=== PATIENT | female | born 1970 | race African-American/Black ===

== ENCOUNTER → 2019-01-12 20:00 | Outpatient (CLI) | payer MEDICAID, SELFPAY | PROVIDERS: Family Provider Family Medicine; PCP Family Medicine | DX: G47.30 Sleep apnea, unspecified (principal) | CPT/HCPCS: 95810 ==

== ENCOUNTER 2019-01-22 16:49 | Emergency (ER) | payer MEDICAID, SELFPAY ==
[2019-01-22 16:51] VITALS: BP 149/98; PULSE 75; RESP 20; TEMP 36.4; O2SAT 99; BMI 48.7
--- NOTE | 2019-01-22 17:07 | EKG12_ITS ---
Test Reason : CP Blood Pressure : / mmHG Vent. Rate : 073 BPM Atrial Rate : 073 BPM P-R Int : 134 ms QRS Dur : 082 ms QT Int : 392 ms P-R-T Axes : 056 036 036 degrees QTc Int : 431 ms Normal sinus rhythm Possible Left atrial enlargement Borderline ECG Confirmed by NEERAJ ALMANZAR ([id number]), international editorial producer KINDRA SOSA ([id number] on 01/28/2019 11:31:42 AM Referred By: L[facility] Confirmed By:NEERAJ ALMANZAR
--- NOTE | 2019-01-22 17:16 | ED.DCSUM_ITS ---
- ER Visit Summary Date of Service: 01/22/19 Chief Complaint: Abdominal pain, nausea, vomiting, diarrhea History of Present Illness: The patient is a 48 F who presents with abdominal pain, nausea, vomiting, diarrhea, and chest pain that all began yesterday. Patient states her pain is sharp. Patient states the pain is over the upper abdomen radiates up into her chest. Patient describes the pain as constant aching but sharp at times. Patient admits to nausea and vomiting but denies any hematemesis or coffee-ground emesis. Patient admits to watery diarrhea but denies any melena or hematochezia. Patient denies any dysuria or hematuria. Patient denies any abnormal vaginal bleeding or discharge. Physical Examination: Vital signs are stable. Patient is afebrile. Patient is in no acute distress. Oral mucosa is pink and moist. Neck is supple. Trachea is midline. There is no JVD. Heart was regular rate and rhythm. Lungs are clear and equal bilaterally. Abdomen is soft. Bowel sounds are normal. There is upper abdominal tenderness. There is no rebound or guarding noted. Cranial nerves II through XII are intact. There are no focal motor or sensory deficits noted. Test Results: CBC and comprehensive metabolic profile were essentially within normal limits. Lipase was normal. Troponin was normal. Urinalysis does not show any evidence of urinary tract infection. EKG showed normal sinus rhythm with a rate of 73. There are no acute ST or T wave changes. CT scan of the abdomen pelvis was obtained. There is no acute abdominal pathology noted. Emergency Department Course and Treatment: Patient was given IV fluids and Zofran here. Patient was given 2 doses of morphine with no improvement. Patient was given a dose of Bentyl. Patient felt better after this. Patient states her pain has completely resolved after the Bentyl. Patient is requesting to eat cookies. Patient was instructed to follow-up with her primary care physician in 5 to 7 days. Patient was given a prescription for Bentyl. Patient understood and was agreeable with the plan. All questions were answered. Disposition: Discharge home Impression: Abdominal pain This note was generated with [employer]Pix[employer] software. It may contain incorrect words, spelling, and punctuation that were not noted in review of the chart prior to signing ED Disposition - Plan for ED Patient: Disposition: Home or Assisted Living Diagnosis: Abdominal pain Instructions: ABDOMINAL PAIN, Unknown Cause, (Female) Prescriptions: Dicyclomine HCl [Bentyl] 20 mg PO TIDAC #20 cap Prescription Printed Referrals: Derek Bolaños III, MD [Primary Care Provider] - 5-7 Days
[2019-01-22] MEDS: Ondansetron 4 MG/2 ML Vial IV (17:23)
[2019-01-22] MEDS: 0.9% Normal Saline 1,000 ML 1000 ML IV (17:23)
[2019-01-22] MEDS: Morphine 4 MG/ML Syringe IV ×2 (17:27→18:33)
[2019-01-22 17:30] LABS: Absolute Lymphocyte Count 1.99 X10^3/uL (0.83-4.51); Absolute Neutrophil Count 4.7 X10^3/uL (2.0-7.7); Basophil# 0.01 X10^3/uL; Basophil% 0.1 % (0-1); Eosinophil# 0.02 X10^3/uL; Eosinophils% 0.3 % (0-5); Hematocrit 43.8 % (37-47); Hemoglobin 13.7 g/dL (12.0-15.0); Lymphocyte # 1.99 X10^3/ul (4.0); Lymphocyte % 26.6 % (19-41); Mean Corp Hgb Conc 31.3 g/dL (32-36); Mean Corpuscular Hgb 26.8 pg (27.0-32.0); Mean Corpuscular Volume 85.7 fL (81-99); Mean Platelet Vol. 9.1 fl (6.2-12.0); Monocyte# 0.77 X10^3/uL; Monocyte% 10.3 % (0-10); NRBC Flagged by Analyzer 0 % (0-5); Neutrophil # 4.65 X10^3/uL (2.7-7.7); Neutrophil % 62.3 % (47-70); Platelet Count 254 K/mm3 (150-450); RBC Distribution Width CV 13.1 % (11.6-14.6); RBC Distribution Width SD 40.6 fl (35.1-43.9); Red Blood Count 5.11 M/mm3 (4.2-5.4); White Blood Count 7.5 K/mm3 (4.4-11.0)
--- NOTE | 2019-01-22 18:24 | CT_ITS ---
STUDY: CT ABDOMEN AND PELVIS WITH CONTRAST REASON FOR EXAM: Female, 48 years old. Abdominal pain nausea vomiting and diarrhea RADIATION DOSAGE (If Supplied By Facility): CTDIvol = ( 15.42 ) mGy, DLP = ( 1259.75 ) mGycm TECHNIQUE: Transaxial images were obtained from the dome of the diaphragm to the symphysis pubis without oral contrast. IV/Oral Isovue 300 100ml was administered. Sagittal and coronal images were reconstructed. Individualized dose optimization techniques were used for this CT. COMPARISON: Prior study of 08/27/2015 FINDINGS: The visualized lung bases are unremarkable. The visualized portions of the heart are within normal limits. Normal liver. There are surgical clips in the gallbladder fossa consistent with a prior cholecystectomy. Normal spleen. Normal pancreas. Normal bilateral adrenal glands. Normal right kidney. Normal left kidney. Normal visualized stomach. Normal small intestine. Normal colon. The appendix is visualized and appears normal. Normal abdominal aorta. Normal inferior vena cava. Normal retroperitoneum. Normal urinary bladder. There is absence of the uterus consistent with a prior hysterectomy. There is a small umbilical hernia containing fat. Normal osseous structures. CT/Abdomen/Pelvis WITH Contrast IMPRESSION: 1. Status post cholecystectomy and hysterectomy. 2. Small fat-containing umbilical hernia. 3. There is no evidence of free intra-abdominal or intrapelvic air, fluid, or inflammatory process. Electronically Signed: Brian Saha MD at 21:17 EST , Service support ,
[2019-01-22 18:25] LABS: ALB/GLOB Ratio 0.8 RATIO (0.9-2.4); AST(SGOT) 24 U/L (15-37); Alanine Aminotransfer ALT/SGPT 23 U/L (13-56); Albumin, Serum 3.5 g/dL (3.2-5.0); Alkaline Phosphatase 91 U/L (45-117); Anion Gap 8 (5-15); BUN 16 mg/dL (7-18); BUN/Creat Ratio 16.3 RATIO (10-20); Calcium,Total 8.4 mg/dL (8.5-10.1); Chloride 109 mmol/L (98-107); Creatinine, Serum 0.98 mg/dL (0.55-1.02); EST Glomerular Filtration Rate 65 mL/min (>60); Est Glom Filt Rate - Afr Amer 78 mL/min (>60); Estimated Creatinine Clearance 67.15 ml/min; Globulin 4.5 g/dL (2.2-4.2); Glucose 90 mg/dL (74-106); Lipase 92 U/L (73-393); Potassium 3.2 mmol/L (3.5-5.1); Sodium Level 141 mmol/L (136-145)
[2019-01-22 19:11] VITALS: BP 130/72; PULSE 74; RESP 13; O2SAT 98
[2019-01-22 19:19] LABS: Color, Urine Yellow (Yellow); Glucose, Dipstick Normal (Normal); Ketone-Dipstick 5 mg/dl (Negative); Leukocyte Esterase-Dipstick 25 /ul (Negative); Nitrite-Dipstick Negative (Negative); Occult Blood-Urine 25 /ul (Negative); Protein-Dipstick 15 mg/dl (Negative); Urine Bilirubin Dipstick Negative (Negative); Urine Clarity Sl. Cloudy (Clear); Urine Urobilinogen 1 mg/dl (Normal)
[2019-01-22 19:28] LABS: White Blood Cells 0-5 SEEN /hpf (0-5)
[2019-01-22 19:29] LABS: Lactic Acid 1.1 mmol/L (0.4-2.0)
[2019-01-22 19:30] LABS: Bacteria 1+ /hpf (None Seen); Mucous, Urine 1+ /hpf (<or=2+); Squamous Epithelial Cells - UA 0-5 SEEN /hpf (5-10)
[2019-01-22 19:31] LABS: Red Blood Cells-Urine 0-5 SEEN /hpf (0-5)
[2019-01-22] MEDS: Dicyclomine 20 MG/2 ML Vial IM (20:07)
[2019-01-22 22:22] VITALS: BP 115/64; PULSE 61; PULSE 64; RESP 18; O2SAT 97; O2SAT 98
[2019-01-22] MEDS: Dicyclomine 10 MG Capsule PO (22:24)
== END 2019-01-22 22:28 | disposition home or self-care (01) ==
PROVIDERS: Emergency Provider Emergency Medicine; Family Provider Family Medicine; PCP Family Medicine
DX: R10.10 Upper abdominal pain, unspecified (principal); R11.2 Nausea with vomiting, unspecified; I10 Essential (primary) hypertension; J30.2 Other seasonal allergic rhinitis; F41.9 Anxiety disorder, unspecified; E66.9 Obesity, unspecified; F17.200 Nicotine dependence, unspecified, uncomplicated; Z79.899 Other long term (current) drug therapy
CPT/HCPCS: 74177; 80053; 81001; 83605; 83690; 84484; 85025; 87804; 93005; 96361; 96372; 96374; 96375; 96376; 99284; J7030; Q9967; J2405

== ENCOUNTER → 2019-03-24 21:25 | Outpatient (CLI) | payer MEDICAID, SELFPAY | PROVIDERS: Family Provider Family Medicine; PCP Family Medicine; Referring Provider Family Medicine; Visit Provider Family Medicine | DX: G47.33 Obstructive sleep apnea (adult) (pediatric) (principal) | CPT/HCPCS: 95811 ==

== ENCOUNTER 2022-03-14 06:26 | Emergency (ER) | payer BC, SELFPAY ==
[2022-03-14 06:28] VITALS: BP 139/72; PULSE 78; RESP 16; TEMP 36.6; O2SAT 98; BMI 44.7
--- NOTE | 2022-03-14 07:26 | ED.VIS.GI ---
HPI HPI - GI History of Present Illness Chief Complaint: Abd Pain Informant: patient Abdominal Pain/Flank Pain Onset: Days (4) Context: Gradual Onset Timing: Waxes and wanes Quality: Sharp Location: Epigastric Worsened by: Food Relieved by: - (Gas pills) Nausea/Vomiting/Emesis GI Symptom: Positive for Nausea; Negative for Vomiting Diarrhea/Melena/Hematochezia GI Symptom: Positive for Diarrhea; Negative for Melena or Hematochezia Associated Symptoms Associated Symptoms: Negative for Dysuria, Frequency or Hematuria Narrative Narrative: Presents with no pain that has been waxing and waning over the last 4 days. Patient describes her pain as sharp. Patient states pain is over the epigastric area. Patient states it became worse after taking her medicine today. Patient states that she took some gas pills earlier which seem to help. Patient admits to nausea but denies any vomiting. Patient admits to diarrhea but denies any melena or hematochezia. Patient denies any dysuria or hematuria. Patient denies any abnormal vaginal bleeding or discharge. Patient states she is also getting over an episode of bronchitis. Patient states she still has a cough and sore throat from that. Patient denies any fevers or chills. [facility] Medical History (Updated 03/14/22 @ 09:[address] Jonh Tiwari, DO) GERD (gastroesophageal reflux disease) HTN (hypertension) Obesities, morbid Home Medications citalopram 40 mg tablet 40 mg PO DAILY 04/21/13 [History Last Taken Unknown] clonazepam 1 mg tablet 1 mg PO DAILY 04/21/13 [History Last Taken Unknown] esomeprazole magnesium 40 mg capsule,delayed release (Nexium) 40 mg PO DAILY 04/21/13 [History Last Taken Unknown] fluticasone propionate 50 mcg/actuation nasal spray,suspension 2 spray DAILY 04/21/13 [History Last Taken Unknown] loratadine 10 mg tablet (Allergy Relief (loratadine)) 10 mg PO DAILY 04/21/13 [History Last Taken Unknown] dicyclomine 10 mg capsule 20 mg PO TIDAC #20 caps 01/22/19 [Rx Last Taken Unknown] ondansetron 4 mg disintegrating tablet 4 mg PO Q8H PRN PRN Nausea #10 tabs 01/22/19 [Rx Last Taken Unknown] sucralfate 1 gram tablet (Carafate) 1 g PO BID #20 tabs 03/14/22 [Rx Last Taken Unknown] Allergy/AdvReac Type Severity Reaction Status Date / Time Fish Containing Products Allergy Swelling Verified 03/14/22 06:31 shellfish derived Allergy Swelling Verified 03/14/22 06:31 olanzapine [From Zyprexa] AdvReac Unknown Verified 03/14/22 06:31 paroxetine HCl [From Paxil] AdvReac Unknown Verified 03/14/22 06:31 sertraline HCl [From Zoloft] AdvReac Unknown Verified 03/14/22 06:31 sumatriptan [From Imitrex] AdvReac Upset Verified 03/14/22 06:31 Stomach sumatriptan succinate AdvReac Upset Verified 03/14/22 06:31 [From Imitrex] Stomach Surgical History (Updated 03/14/22 @ 07:[address] John Tiwari DO) H/O: hysterectomy Hx of cholecystectomy Social History Smoking Status: Former smoker ROS ROS ED Constitutional Constitutional ED: Denies chills or fever(s) Eyes Eyes: Denies blurry vision or change in vision ENT ENT ED: Reports ear pain right and sore throat; Denies rhinorrhea Cardiovascular Cardiovascular: Denies chest pain or palpitations Respiratory/Chest Respiratory/Chest: Reports cough; Denies dyspnea Gastrointestinal Gastrointestinal: Reports abdominal pain, diarrhea and nausea; Denies vomiting Genitourinary Genitourinary ED: Denies dysuria or hematuria Musculoskeletal Musculoskeletal: Denies back pain or neck pain Integumentary Denies abscess or rash Neurologic Neurologic: Denies headache(s) or weakness Allergic/Immunologic Allergic/Immunologic ED: Denies mouth swelling or urticaria EXAM Physical Exam Const Vital Signs: 03/14/22 06:28 Temperature 97.8 F Temperature Source Temporal Pulse Rate 78 Respiratory Rate 16 Blood Pressure 139/72 H Blood Pressure Mean 94 Pulse Ox 98 Oxygen Delivery Method Room Air Positive well nourished, well developed and obese General Appearance ED: well developed and NAD Nutritional Appearance: obese HEENT Reports moist mucous membranes Neck supple and no JVD Resp normal respiratory effort and clear to auscultation bilaterally Cardio regular rate, regular rhythm and no murmurs GI normal to inspection, nondistended, normoactive bowel sounds Palpation: soft and tender epigastric, LUQ and RUQ; Negative for guarding or rebound tenderness present Extremity normal to inspection General Extremety ED: Negative for edema or tenderness General Extremity: Negative for edema Neuro oriented x3, CN's II-XII intact bilaterally and no sensory deficits noted Sensorium / Orientation: alert Motor Exam: strength 5/5 throughout Psych mental status grossly normal Skin no rashes or lesions noted MDM MDM MDM Narrative Medical decision making narrative: Patient was given IV fluids and Zofran. Patient declined morphine. CBC was obtained and was reviewed. This was within normal limits. Comprehensive metabolic profile was obtained and was reviewed. AST is slightly elevated at 168 and ALT is slightly elevated at 128. The remainder is within normal limits. Lipase was within normal limits. Urinalysis was obtained and was reviewed. There were 5-10 epithelial cells and 2+ bacteria. There is no evidence of urinary tract infection or hematuria. Patient is feeling better on reevaluation. Patient was advised that this could be viral gastritis or peptic ulcer disease. Patient states she has been taking Nexium at home. Patient was instructed to continue this. Patient was given a prescription for Carafate. Patient was instructed to start with a bland diet and advance as tolerated. Patient was instructed to follow-up with her primary care physician in 5 to 7 days. Patient was advised she may need to see a fiberglasser. Patient understands and is agreeable with the plan. All questions were answered. Lab Data Attestation: I reviewed the patient's lab results. Labs: Laboratory Results - last 24 hr 03/14/22 03/14/22 03/14/22 06:45 06:45 08:30 WBC 10.3 RBC 5.09 Hgb 13.5 Hct 44.0 MCV 86.4 MCH 26.5 L MCHC 30.7 L RDW Std Deviation 43.0 RDW Coeff of Stephanie 13.5 Plt Count 283 MPV 9.1 Immature Gran % (Auto) 0.200 Neut % (Auto) 53.5 Lymph % (Auto) 33.5 [place] % (Auto) 10.7 H Eos % (Auto) 1.9 Baso % (Auto) 0.2 Absolute Neuts (auto) 5.5 Absolute Lymphs (auto) 3.44 Nucleated RBC % 0 Sodium 139 Potassium 3.6 Chloride 107 Carbon Dioxide 25.0 Anion Gap 7 BUN 9 Creatinine 0.86 Estim Creat Clear Calc 76.95 Est GFR (MDRD) Af Amer 90 Est GFR (MDRD) Non-Af 75 BUN/Creatinine Ratio 10.5 Glucose 99 Calcium 8.8 Total Bilirubin 0.40 AST 168 H ALT 128 H Alkaline Phosphatase 114 Total Protein 7.2 Albumin 3.1 L Globulin 4.1 Albumin/Globulin Ratio 0.8 L Lipase 92 Urine Color Yellow Urine Clarity Sl. Cloudy Urine pH 6.0 Ur Specific [place] 1.015 Urine Protein 15 H Urine Glucose (UA) Normal Urine Ketones Negative Urine Occult Blood 10 H Urine Nitrite Negative Urine Bilirubin Negative Urine Urobilinogen Normal Ur Leukocyte Esterase Negative Urine RBC 0-5 SEEN Urine WBC 0 SEEN Ur Squamous Epith Cells 5-10 SEEN Urine Bacteria 2+ Urine Mucus 0 SEEN Discharge Plan Triage Chief Complaint: Abd Pain ED Provider: John Tiwari Dx/Rx/DC Orders Clinical Impression: Epigastric abdominal pain, Obesities, morbid, HTN (hypertension) Instructions: ED Gastritis Ulcer No Abx, ED Epigastric Pain Uncertain Cause Prescriptions: New sucralfate [Carafate] 1 gram tablet 1 g PO BID Qty: 20 0RF No Action citalopram 40 MG tablet 40 mg PO DAILY Label Comments: antidepressant clonazepam 1 MG tablet 1 mg PO DAILY Label Comments: anxiety esomeprazole magnesium [Nexium] 40 MG capsule 40 mg PO DAILY Label Comments: stomach acid fluticasone propionate 1 SPRAY spray,suspension 2 spray NASAL DAILY Label Comments: allergies loratadine [Allergy Relief (loratadine)] 10 MG tablet 10 mg PO DAILY Label Comments: allergies dicyclomine 10 MG capsule 20 mg PO TIDAC Qty: 20 0RF ondansetron 4 MG tablet 4 mg PO Q8H PRN PRN (Reason: Nausea) Qty: 10 0RF Primary Care Provider: Cisco Meier Referrals: Cisco Meier MD [Primary Care Provider] - 3-5 Days Disposition Disposition: Home, Self Care
[2022-03-14] MEDS: 0.9% Normal Saline 1,000 ML 1000 ML IV (07:47)
[2022-03-14] MEDS: Ondansetron 4 MG/2 ML Vial IV (07:47)
[2022-03-14 07:53] LABS: Absolute Lymphocyte Count 3.44 X10^3/uL (0.83-4.51); Absolute Neutrophil Count 5.5 X10^3/uL (2.0-7.7); Basophil# 0.02 X10^3/uL; Basophil% 0.2 % (0-1); Eosinophils% 1.9 % (0-5); Hemoglobin 13.5 g/dL (12.0-15.0); Lymphocyte # 3.44 X10^3/ul (0.83-4.51); Lymphocyte % 33.5 % (19-41); Mean Corp Hgb Conc 30.7 g/dL (32-36); Mean Corpuscular Hgb 26.5 pg (27.0-32.0); Mean Corpuscular Volume 86.4 fL (81-99); Mean Platelet Vol. 9.1 fl (6.2-12.0); Monocyte% 10.7 % (0-10); NRBC Flagged by Analyzer 0 % (0-5); Neutrophil % 53.5 % (47-70); Platelet Count 283 K/mm3 (150-450); RBC Distribution Width CV 13.5 % (11.6-14.6); Red Blood Count 5.09 M/mm3 (4.2-5.4); White Blood Count 10.3 K/mm3 (4.4-11.0)
[2022-03-14 08:10] LABS: ALB/GLOB Ratio 0.8 RATIO (0.9-2.4); AST(SGOT) 168 U/L (15-37); Alanine Aminotransfer ALT/SGPT 128 U/L (13-56); Albumin, Serum 3.1 g/dL (3.2-5.0); Alkaline Phosphatase 114 U/L (45-117); Anion Gap 7 (5-15); BUN 9 mg/dL (7-18); BUN/Creat Ratio 10.5 RATIO (10-20); Calcium,Total 8.8 mg/dL (8.5-10.1); Chloride 107 mmol/L (98-107); Creatinine, Serum 0.86 mg/dL (0.55-1.02); EST Glomerular Filtration Rate 75 mL/min (>60); Est Glom Filt Rate - Afr Amer 90 mL/min (>60); Estimated Creatinine Clearance 76.95 ml/min; Globulin 4.1 g/dL (2.2-4.2); Glucose 99 mg/dL (74-106); Lipase 92 U/L (73-393); Potassium 3.6 mmol/L (3.5-5.1); Protein, Total 7.2 g/dL (6.4-8.2); Sodium Level 139 mmol/L (136-145)
[2022-03-14 08:35] LABS: Mucous, Urine 0 SEEN /hpf (<or=2+); White Blood Cells 0 SEEN /hpf (0-5)
[2022-03-14 08:37] LABS: Color, Urine Yellow (Yellow); Glucose, Dipstick Normal (Normal); Ketone-Dipstick Negative (Negative); Leukocyte Esterase-Dipstick Negative /ul (Negative); Nitrite-Dipstick Negative (Negative); Occult Blood-Urine 10 /ul (Negative); Protein-Dipstick 15 mg/dl (Negative); Specific Gravity, Urine 1.015 (1.002-1.030); Urine Bilirubin Dipstick Negative (Negative); Urine Clarity Sl. Cloudy (Clear); Urine Urobilinogen Normal (Normal)
[2022-03-14 08:46] LABS: Bacteria 2+ /hpf (None Seen); Red Blood Cells-Urine 0-5 SEEN /hpf (0-5); Squamous Epithelial Cells - UA 5-10 SEEN /hpf (5-10)
[2022-03-14 09:35] VITALS: RESP 18
== END 2022-03-14 09:36 | disposition home or self-care (01) ==
PROVIDERS: Emergency Provider Emergency Medicine; PCP Family Medicine; Visit Provider Emergency Medicine
DX: R10.13 Epigastric pain (principal); E66.01 Morbid (severe) obesity due to excess calories; R11.0 Nausea; I10 Essential (primary) hypertension; R19.7 Diarrhea, unspecified; J40 Bronchitis, not specified as acute or chronic; K21.9 Gastro-esophageal reflux disease without esophagitis; Z87.891 Personal history of nicotine dependence; Z79.899 Other long term (current) drug therapy
CPT/HCPCS: 80053; 81001; 83690; 85025; 96361; 96374; 96375; 99283; J7030; A4216; J2405

== ENCOUNTER → 2022-08-05 | Outpatient (CLI) | payer BC, SELFPAY ==
[2022-08-05 10:35] LABS: Absolute Lymphocyte Count 3.99 X10^3/uL (0.83-4.51); Absolute Neutrophil Count 3.3 X10^3/uL (2.0-7.7); Basophil# 0.02 X10^3/uL; Basophil% 0.2 % (0-1); Eosinophil# 0.09 X10^3/uL; Eosinophils% 1.1 % (0-5); Hematocrit 39.2 % (37-47); Hemoglobin 12.2 g/dL (12.0-15.0); Lymphocyte # 3.99 X10^3/ul (0.83-4.51); Lymphocyte % 49.6 % (19-41); Mean Corp Hgb Conc 31.1 g/dL (32-36); Mean Corpuscular Hgb 26.5 pg (27.0-32.0); Mean Corpuscular Volume 85.2 fL (81-99); Mean Platelet Vol. 9.6 fl (6.2-12.0); Monocyte# 0.65 X10^3/uL; Monocyte% 8.1 % (0-10); NRBC Flagged by Analyzer 0 % (0-5); Neutrophil # 3.29 X10^3/uL (2.7-7.7); Neutrophil % 40.9 % (47-70); Platelet Count 279 K/mm3 (150-450); RBC Distribution Width CV 13.9 % (11.6-14.6); RBC Distribution Width SD 43.3 fl (35.1-43.9); White Blood Count 8.1 K/mm3 (4.4-11.0)
[2022-08-05 10:42] LABS: Erythrocyte Sedimentation Rate 45 mm/hr (0-30)
[2022-08-05 11:08] LABS: ALB/GLOB Ratio 0.8 RATIO (0.9-2.4); AST(SGOT) 18 U/L (15-37); Alanine Aminotransfer ALT/SGPT 21 U/L (13-56); Albumin, Serum 3.3 g/dL (3.2-5.0); Alkaline Phosphatase 85 U/L (45-117); Anion Gap 1 (5-15); BUN 12 mg/dL (7-18); BUN/Creat Ratio 14.7 RATIO (10-20); Calcium,Total 8.9 mg/dL (8.5-10.1); Chloride 110 mmol/L (98-107); Creatinine, Serum 0.82 mg/dL (0.55-1.02); EST Glomerular Filtration Rate 79 mL/min (>60); Est Glom Filt Rate - Afr Amer 95 mL/min (>60); Globulin 4.1 g/dL (2.2-4.2); Glucose 80 mg/dL (74-106); LDH 225 U/L (84-246); Potassium 3.8 mmol/L (3.5-5.1); Protein, Total 7.4 g/dL (6.4-8.2); Sodium Level 137 mmol/L (136-145)
[2022-08-06 15:08] LABS: Endomysial Antibody IgA Negative (Negative); Immunoglobulin A 231 mg/dL (87-352); t-Transglutaminase IgA <2 U/mL (0-3)
[2022-08-08 19:07] LABS: Albumin 3.4 g/dL (2.9-4.4); Alpha-1-Globulins 0.2 g/dL (0.0-0.4); Alpha-2-Globulins 0.7 g/dL (0.4-1.0); Anti-Centromere B Ab <0.2 AI (0.0-0.9); Anti-Chromatin <0.2 AI (0.0-0.9); Anti-Jo <0.2 AI (0.0-0.9); Anti-Scleroderma-70 AB <0.2 AI (0.0-0.9); Anti-dsDNA Ab <1 IU/mL (0-9); Beef <0.10 kU/L (Class 0); Chocolate <0.10 kU/L (Class 0); Clam <0.10 kU/L (Class 0); Codfish <0.10 kU/L (Class 0); Corn <0.10 kU/L (Class 0); Cytoplasmic Ab (C-ANCA) <1:20 titer (Neg:<1:20); Egg, White <0.10 kU/L (Class 0); Egg, Whole <0.10 kU/L (Class 0); Gamma Globulin 1.3 g/dL (0.4-1.8); Immunoglobulin A 230 mg/dL (87-352); Immunoglobulin E 119 IU/mL (6-495); Immunoglobulin G 1368 mg/dL (586-1602); Immunoglobulin M 57 mg/dL (26-217); Milk (Cow) 0.45 kU/L (Class I); PROEL- TOTAL PROTEIN 6.8 g/dL (6.0-8.5); Peanut <0.10 kU/L (Class 0); Perinuclear Ab (P-ANCA) <1:20 titer (Neg:<1:20); Pork <0.10 kU/L (Class 0); RNP Ab <0.2 AI (0.0-0.9); SCALLOP <0.10 kU/L (Class 0); SESAME SEED <0.10 kU/L (Class 0); SJOGREN'S Anti-SS-A test < 0.2 AI (0.0-0.9); SJOGREN'S Anti-SS-B test < 0.2 AI (0.0-0.9); Shrimp <0.10 kU/L (Class 0); Smith Ab <0.2 AI (0.0-0.9); Soybean <0.10 kU/L (Class 0); Walnut, (Food) <0.10 kU/L (Class 0); Wheat <0.10 kU/L (Class 0)
== END | disposition home or self-care (01) ==
LOC: LAB 08:48
PROVIDERS: PCP Family Medicine; Referring Provider Internal Medicine Gastroenterology; Visit Provider Internal Medicine Gastroenterology
DX: K21.9 Gastro-esophageal reflux disease without esophagitis (principal); E66.01 Morbid (severe) obesity due to excess calories
CPT/HCPCS: 36415; 80053; 82784; 82785; 83516; 83615; 84165; 85025; 85652; 86003; 86005; 86140; 86225; 86235; 86255; 86256; 86334

== ENCOUNTER 2023-04-14 00:08 | Emergency (ER) | payer BC, MEDICAID, SELFPAY ==
[2023-04-14 00:09] VITALS: BP 146/77; PULSE 87; RESP 18; TEMP 37.6; O2SAT 97; BMI 47.4
--- NOTE | 2023-04-14 00:21 | RAD_ITS ---
EXAM: XR CHEST, 2 VIEWS CLINICAL INDICATION: cough, sob TECHNIQUE: Frontal and lateral views of the chest. COMPARISON: 02/05/2016 FINDINGS: LUNGS AND PLEURAL SPACES: Mild subsegmental atelectasis and/or scarring at the left base. No consolidation or edema. No pneumothorax. No effusion. HEART: Unremarkable. Cardiac silhouette not enlarged. MEDIASTINUM: Central airways and mediastinal contour are unremarkable. BONES/JOINTS: Unremarkable. No acute fracture. SOFT TISSUES: Unremarkable. RAD/Chest PA and Lateral IMPRESSION: No radiographic evidence of acute cardiopulmonary disease. Electronically Signed: Deng Peter MD at 1:04 EST ,
--- NOTE | 2023-04-14 00:22 | EX.ED.VIS.UR ---
HPI HPI - URI History of Present Illness Chief Complaint: Shortness of Breath Informant: patient Narrative Narrative: Patient states she started having cold symptoms yesterday, today the cough feels like it is in her chest, she has had subjective fevers and chills, body aches, headache, and she states prior to coming in she experienced some dyspnea with exertion and felt like wheezing. No chest pain. No GI symptoms. No focal neurologic symptoms or neck stiffness/confusion. She states this is chest cough is reminiscent of episodes of bronchitis she has been diagnosed within the past. She states she frequently wheezes whenever she gets cold or different respiratory illnesses. She has never been diagnosed with asthma. She states 3 to 4 days ago, she went with some family to [place] at a [employer] show and so was in a crowd with a lot of people. ROS ROS ED Constitutional Constitutional ED: Reports body ache(s), chills, fatigue, fever(s), headache(s), malaise and subjective Eyes Eyes: Denies change in vision or diplopia ENT ENT ED: Reports headache(s), nasal congestion and rhinorrhea; Denies sore throat Cardiovascular Cardiovascular: Denies chest pain or palpitations Respiratory/Chest Respiratory/Chest: Reports cough, dyspnea and dyspnea on exertion; Denies sputum Gastrointestinal Gastrointestinal: Denies abdominal pain, diarrhea, nausea or vomiting Genitourinary Genitourinary ED: Denies dysuria or hematuria Musculoskeletal Musculoskeletal: Reports myalgias; Denies back pain or neck pain Integumentary Denies abscess or rash Neurologic Neurologic: Reports headache(s); Denies paresthesias or weakness Psychiatric Psychiatric: Denies suicidal ideation or suicidal thoughts [facility] Medical History Anemia Anxiety Bilateral upper abdominal pain Gastritis GERD (gastroesophageal reflux disease) HTN (hypertension) Hyperplastic rectal polyp Migraine Obesities, morbid Sleep disorder Home Medications citalopram 40 mg tablet 40 mg PO DAILY 04/21/13 [History Last Taken Unknown] clonazepam 1 mg tablet 1 mg PO DAILY 04/21/13 [History Last Taken Unknown] fluticasone propionate 50 mcg/actuation nasal spray,suspension 2 spray DAILY 04/21/13 [History Last Taken Unknown] loratadine 10 mg tablet (Allergy Relief (loratadine)) 10 mg PO DAILY 04/21/13 [History Last Taken Unknown] dicyclomine 10 mg capsule 20 mg (2 x 10 mg) PO TIDAC #20 caps 01/22/19 [Rx Last Taken Unknown] ondansetron 4 mg disintegrating tablet 4 mg PO Q8H PRN PRN Nausea #10 tabs 01/22/19 [Rx Last Taken Unknown] sucralfate 1 gram tablet (Carafate) 1 g PO BID #20 tabs 03/14/22 [Rx Last Taken Unknown] albuterol sulfate 90 mcg/actuation aerosol inhaler 2 puff inhalation Q6H PRN 07/03/22 [History Last Taken Unknown] aluminum chloride 20 % topical solution (Drysol) 1 applic topical QWEEK PRN 07/03/22 [History Last Taken Unknown] bisoprolol 5 mg-hydrochlorothiazide 6.25 mg tablet (Ziac) 1 tab PO DAILY 07/03/22 [History Last Taken Unknown] docusate sodium 100 mg capsule (Colace) 100 mg PO DAILY 07/03/22 [History Last Taken Unknown] estradiol 10 mg implant pellet mg subcut 07/03/22 [History Last Taken Unknown] pantoprazole 40 mg tablet,delayed release 40 mg PO DAILY 07/03/22 [History Last Taken Unknown] oseltamivir 75 mg capsule (Tamiflu) 75 mg PO BID 5 days #10 caps 04/14/23 [Rx Last Taken Unknown] Allergy/AdvReac Type Severity Reaction Status Date / Time Fish Containing Products Allergy Swelling Verified 04/14/23 00:09 shellfish derived Allergy Swelling Verified 04/14/23 00:09 olanzapine [From Zyprexa] AdvReac Unknown Verified 04/14/23 00:09 paroxetine HCl [From Paxil] AdvReac Unknown Verified 04/14/23 00:09 sertraline HCl [From Zoloft] AdvReac Unknown Verified 04/14/23 00:09 sumatriptan [From Imitrex] AdvReac Upset Verified 04/14/23 00:09 Stomach sumatriptan succinate AdvReac Upset Verified 04/14/23 00:09 [From Imitrex] Stomach Family History Mother Cancer Father Hypertension Prostate cancer DVT (deep venous thrombosis) Grandmother AD (Alzheimer's disease) Sister Fibroids Diabetes Surgical History H/O dilation and curettage H/O: hysterectomy Hx of cholecystectomy Social History Smoking Status: Former smoker alcohol intake: current EXAM Physical Exam Const Vital Signs: 04/14/23 00:09 04/14/23 00:15 04/14/23 00:16 Temperature 99.7 F H Temperature Source Oral Pulse Rate 87 Respiratory Rate 18 Respiratory Effort Normal Short of Breath Respiratory Depth Normal Respiratory Pattern Normal Normal Blood Pressure 146/77 H Blood Pressure Mean 100 Pulse Ox 97 Oxygen Delivery Method Room Air Room Air 04/14/23 00:34 Temperature Temperature Source Pulse Rate 77 Respiratory Rate Respiratory Effort Respiratory Depth Respiratory Pattern Normal Blood Pressure Blood Pressure Mean Pulse Ox Oxygen Delivery Method Positive well nourished, well developed and obese Constitutional Narrative: no distress General Appearance ED: well developed and NAD Nutritional Appearance: obese HEENT Reports moist mucous membranes normocephalic and atraumatic Throat: posterior oropharynx normal Eyes PERRL and EOMs intact bilaterally Neck full ROM, no lymphadenopathy, supple and no meningeal signs Resp normal respiratory effort and clear to auscultation bilaterally Resp Narrative: occasional bronchitic cough Effort and Inspection: able to speak in complete sentences Cardio regular rate, regular rhythm and no murmurs Rate: Negative for tachycardic GI non-tender and non-distended Auscultation: normoactive bowel sounds Palpation: soft Back/Spine no CVA tenderness General Back: other FROM Extremity normal to inspection and no calf tenderness General Extremety ED: Negative for edema, pulses abnormal or tenderness General Extremity: Negative for edema or pulses abnormal Neuro oriented x3, CN's II-XII intact bilaterally and no sensory deficits noted Sensorium / Orientation: awake and alert Motor Exam: strength 5/5 throughout Psych Mood & Affect: anxious Skin no rashes or lesions noted and no wounds MDM MDM MDM Narrative Medical decision making narrative: Patient well-appearing with normal vital signs except for low-grade temperature at 99.7. Her symptoms are consistent with a viral flu-like syndrome, and during this past 2 or 3-month season, there have been a high prevalence of multiple viral respiratory illnesses in the region including COVID, influenza, RSV, and others that we cannot test for. I offered the patient a chest x-ray which she is asking for and I am happy to do in order to rule out pneumonia which I have a low suspicion of clinically, and we also did a COVID/influenza/RSV swab, this came back positive for influenza A which explains her symptoms. Chest x-ray 2 views my interpretation normal, radiology in agreement. Patient was amenable to an injection of Toradol, I advised her to drink plenty of fluids and rest, ibuprofen, Tylenol as needed, and we discussed reasons to return. We did give her an albuterol aerosol, she thought that helped her wheezing some. She was not wheezing objectively on my exam. She states her [id number] recently of influenza pneumonia and wants Tamiflu, she was given a prescription. Radiography Diagnostic Testing: Clinical Impression(s) from Imaging Studies Chest X-Ray 04/14/23 00:21 IMPRESSION: No radiographic evidence of acute cardiopulmonary disease. Electronically Signed: Deng Peter MD at 1:04 EST , Discharge Plan Triage Chief Complaint: Shortness of Breath Other Complaint: Cold Sx ED Provider: Yazan Holt Dx/Rx/DC Orders Clinical Impression: Influenza A Instructions: The Flu (Influenza) Prescriptions: New oseltamivir [Tamiflu] 75 mg capsule 75 mg PO BID 5 Days Qty: 10 0RF No Action albuterol sulfate 90 mcg/actuation HFA aerosol inhaler 2 puff inhalation Q6H PRN Drysol 20 % solution 1 applic topical QWEEK PRN bisoprolol-hydrochlorothiazide [Ziac] 5-6.25 mg tablet 1 tab PO DAILY docusate sodium [Colace] 100 mg capsule 100 mg PO DAILY estradiol 10 mg pellet subcut pantoprazole 40 mg tablet,delayed release (DR/EC) 40 mg PO DAILY citalopram 40 MG tablet 40 mg PO DAILY Patient Comments: antidepressant clonazepam 1 MG tablet 1 mg PO DAILY Patient Comments: anxiety fluticasone propionate 1 SPRAY spray,suspension 2 spray NASAL DAILY Patient Comments: allergies loratadine [Allergy Relief (loratadine)] 10 MG tablet 10 mg PO DAILY Patient Comments: allergies dicyclomine 10 MG capsule 20 mg PO TIDAC Qty: 20 0RF ondansetron 4 MG tablet 4 mg PO Q8H PRN PRN (Reason: Nausea) Qty: 10 0RF sucralfate [Carafate] 1 gram tablet 1 g PO BID Qty: 20 0RF Primary Care Provider: Cisco Meier Referrals: Cisco Meier MD [Primary Care Provider] - 1 Week if not improving Disposition Disposition: Home, Self Care
[2023-04-14] MEDS: Albuterol 2.5 MG/3 ML VIAL.NEB. INHALATION (00:30)
--- OUTSIDE RECORDS SUMMARY | 2023-04-14 00:32 | XMS RPT_ITS | CCD ---
Author Name Unknown Address [address] [place] [address] Organization [facility] Care Team Providers Care Verifying Specialist Name Role Phone Hardeep PADILLA, Gerber Colbert Primary Care Provider GERBER MEIER Primary Care Unavailable SHARMAINE RILEY Attending Unavailable GERBER MEIER Referring Unavailable GERBER MEIER Primary Care Unavailable GERBER MEIER Referring Unavailable GERBER MEIER Primary Care Unavailable GERBER MEIER Primary Care Unavailable GERBER MEIER Attending Unavailable GERBER MEIER Primary Care Unavailable HARDEEPGERBER Referring Unavailable HARDEEP, GERBER Colbert Referring Unavailable HARDEEP, GERBER Colbert Primary Care Unavailable GERBER MEIER Primary Care Unavailable GERBER MEIER Attending Unavailable ED THOMASON Referring Unavailable HARDEEP, GERBER Colbert Primary Care Unavailable HARDEEP, GERBER Colbert Primary Care Unavailable KEATON HALL Attending Unavailable EDDIE TRUJILLO Referring Unavailable HARDEEP, GERBER Colbert Primary Care Unavailable EDDIE TRUJILLO Referring Unavailable GERBER MEIER Primary Care Unavailable GERBER MEIER Referring Unavailable KEATON HALL Attending Unavailable GERBER MEIER Primary Care Unavailable Gerber Meier MD Primary Care Provider Allergies Allergy Classification Reported Allergen(s) Allergy Type Date of Onset Reaction(s) Facility (20 sources) OLANZapine; Translations: [OLANZAPINE] Drug Allergy 10-28-2004 Other: See Comments [facility] (20 sources) PARoxetine; Translations: [PAROXETINE HCL] Drug Allergy 10-28-2004 Other: See Comments [facility] (20 sources) Sertraline; Translations: [SERTRALINE HCL] Drug Allergy 07-07-2005 Unknown [facility] (20 sources) Shellfish; Translations: [SHELLFISH DERIVED] Drug Allergy 09-13-2015 Swelling [facility] (20 sources) SUMAtriptan; Translations: [SUMATRIPTAN SUCCINATE] Drug Allergy 05-12-2013 Other: See Comments [facility] Medications Current Medications Medication Drug Class(es) Dates Sig (Normalized) Sig (Original) bisoprolol fumarate 5 mg / hydroCHLOROthiazide 6.25 mg oral tablet (20 sources) Thiazide Diuretic, beta-Adrenergic Alida Start: 03-07-2021 End: 05-23-2023 take 1 tablet by mouth once daily bisoprolol-hydro CHLOROthiazide (ZIAC) 5-6.25 mg per tablet Indications: Essential hypertension, benign Take 1 tablet by mouth once daily. 90 tablet 1 11/24/2022 05/23/2023 Active Completed/Discontinued Medications Medication Drug Class(es) Dates Sig (Normalized) Sig (Original) [id number] 200 actuat albuterol 0.09 mg/actuat metered dose inhaler (20 sources) beta2-Adrenergic Agonist Start: 02-25-2023 take 2 puff(s) by inhalation every four hours as needed albuterol HFA (VENTOLIN HFA) 90 mcg/actuation inhaler Inhale 2 Puffs as instructed every 4 hours as needed. 18 g 0 02/25/2023 Active Problems Active Problems Problem Classification Problem Date Documented Da te Episodic/Chronic Abdominal pain (18 sources) Epigastric pain; Translations: [Epigastric pain] Onset: 3 Episodic Acute bronchitis (1 source) Viral bronchitis; Translations: [Acute bronchitis due to other specified organisms] Episodic Anxiety disorders (20 sources) Severe anxiety (panic); Translations: [Panic disorder [episodic paroxysmal anxiety]] Onset: 6 03-07-2021 Chronic Chronic obstructive pulmonary disease and bronchiectasis (1 source) Bronchitis, not specified as acute or chronic; Translations: [Bronchitis] Onset: 3 Episodic Esophageal disorders (20 sources) Gastroesophageal reflux disease; Translations: [Gastro-esophageal reflux disease without esophagitis] Onset: 1 07-19-2010 Chronic Essential hypertension (20 sources) Benign essential hypertension; Translations: [Essential (primary) hypertension] Onset: 5 03-22-2014 Chronic Gastritis and duodenitis (9 sources) Gastritis; Translations: [Gastritis, unspecified, without bleeding] Onset: 3 Episodic Headache; including migraine (20 sources) Refractory migraine; Translations: [Migraine, unspecified, intractable, without status migrainosus] Onset: 7 07-01-2016 Chronic Mood disorders (20 sources) Recurrent major depression; Translations: [Major depressive disorder, recurrent, unspecified] Onset: 6 04-23-2015 Chronic Osteoarthritis (20 sources) Bilateral arthritis of knees; Translations: [Bilateral primary osteoarthritis of knee] Onset: 5 01-01-2015 Chronic Other gastrointestinal disorders (20 sources) Irritable bowel syndrome; Translations: [Irritable bowel syndrome without diarrhea] Onset: 7 05-19-2006 Chronic Other liver diseases (4 sources) Elevated liver enzymes level; Translations: [Abnormal levels of other serum enzymes] Episodic Other nervous system disorders (20 sources) Meralgia paresthetica; Translations: [Meralgia paresthetica, unspecified lower limb] Onset: 3 03-30-2012 Chronic Other nutritional; endocrine; and metabolic disorders (20 sources) Metabolic syndrome X; Translations: [Metabolic syndrome] Onset: 7 05-19-2006 Chronic Other nutritional; endocrine; and metabolic disorders (20 sources) Morbid obesity; Translations: [Morbid (severe) obesity due to excess calories] Onset: 6 04-23-2015 Chronic Other nutritional; endocrine; and metabolic disorders (1 source) Dysmetabolic syndrome X; Translations: [Dysmetabolic syndrome X] Onset: 7 Chronic Other nutritional; endocrine; and metabolic disorders (1 source) Morbid (severe) obesity due to excess calories; Translations: [Morbid obesity due to excess calories (HCC)] Onset: 6 Chronic Other nutritional; endocrine; and metabolic disorders (1 source) Abnormal weight gain; Translations: [Weight gain] Onset: 3 Episodic Other upper respiratory disease (20 sources) Allergic rhinitis; Translations: [Allergic rhinitis, unspecified] Onset: 6 01-17-2021 Chronic Other upper respiratory disease (1 source) Bleeding from nose; Translations: [Epistaxis] 11-15-2022 Episodic Other upper respiratory infections (2 sources) Viral upper respiratory tract infection; Translations: [Acute upper respiratory infection, unspecified] Episodic Residual codes; unclassified (20 sources) Hypersomnia; Translations: [Hypersomnia, unspecified] Onset: 7 09-10-2017 Chronic Residual codes; unclassified (20 sources) Obstructive sleep apnea syndrome; Translations: [Obstructive sleep apnea (adult) (pediatric)] Onset: 0 04-18-2019 Chronic Residual codes; unclassified (1 source) Obstructive sleep apnea (adult) (pediatric); Translations: [JES (obstructive sleep apnea)] Onset: 0 Chronic Spondylosis; intervertebral disc disorders; other back problems (1 source) Low back pain; Translations: [Lumbar pain] Episodic Past or Other Problems Problem Classification Problem Date Documented Da te Episodic/Chronic Abdominal hernia (20 sources) Umbilical hernia; Translations: [Umbilical hernia without obstruction or gangrene] Onset: 01-17-2021 01-17-2021 Episodic Anal and rectal conditions (2 sources) Hyperplastic polyp of large intestine; Translations: [Rectal polyp] Onset: 05-23-2022 Episodic Other connective tissue disease (20 sources) Muscle pain; Translations: [Myalgia and myositis, unspecified] Onset: 10-28-2004 10-28-2004 Episodic Other connective tissue disease (20 sources) Plantar fasciitis of left foot; Translations: [Plantar fascial fibromatosis] Onset: 04-23-2015 04-23-2015 Episodic Other gastrointestinal disorders (11 sources) Burping; Translations: [Eructation] Onset: 05-13-2022 Episodic Other infections; including parasitic (11 sources) History of Helicobacter pylori infection; Translations: [Personal history of other infectious and parasitic diseases] Onset: 05-13-2022 Episodic Other infections; including parasitic (1 source) Personal history of other infectious and parasitic diseases; Translations: [History of Helicobacter pylori infection] Onset: 05-13-2022 Episodic Other liver diseases (1 source) Abnormal levels of other serum enzymes; Translations: [Elevated liver enzymes] Onset: 03-18-2022 Episodic Other screening for suspected conditions (not mental disorders or infectious disease) (14 sources) Patient encounter status; Translations: [Encounter for screening mammogram for malignant neoplasm of breast] Onset: 05-13-2022 Episodic Other upper respiratory disease (1 source) Epistaxis; Translations: [Epistaxis] Onset: 11-15-2022 Episodic Residual codes; unclassified (20 sources) Family history of malignant neoplasm of breast in first degree relative; Translations: [Family history of malignant neoplasm of breast] Onset: 12-23-2011 12-23-2011 Episodic Residual codes; unclassified (20 sources) Sleep disorder; Translations: [Sleep disorder, unspecified] Onset: 04-23-2015 04-23-2015 Episodic Results Test Name Value Interpretation Reference Range Facil ity Vital Signs Date Time Vital Sign Value Performing Clinician Faci lity 11-15-2022 10:33-0400 Body temperature 97.3 [degF] Ed Thomason MD Work Phone: [facility] 11-15-2022 10:33-0400 Body weight 136.08 kg Ed Thomason MD Work Phone: [facility] 11-15-2022 10:33-0400 Diastolic blood pressure 100 mm[Hg] Ed Thomason MD Work Phone: [facility] 11-15-2022 10:33-0400 Heart rate 60 /min Ed Thomason MD Work Phone: [facility] 11-15-2022 10:33-0400 Respiratory rate 23 /min Ed Thomason MD Work Phone: [facility] 11-15-2022 10:33-0400 SaO2% (BldA) [Mass fraction] 97 % Ed Thomason MD Work Phone: [facility] 11-15-2022 10:33-0400 Systolic blood pressure 130 mm[Hg] Ed Thomason MD Work Phone: [facility] 05-14-2022 09:26-0400 Body height 167.6 cm [facility] 04-01-2022 13:14-0500 Body height 167.6 cm Keaton Hall PA-C Work Phone: [facility] 04-01-2022 13:14-0500 Body temperature 97.2 [degF] Keaton Rafael PA-C Work Phone: [facility] 04-01-2022 13:14-0500 Body weight 135.17 kg Keaton Wardsboro PA-C Work Phone: [facility] 04-01-2022 13:14-0500 Diastolic blood pressure 78 mm[Hg] Keaton Wardsboro PA-C Work Phone: [facility] 04-01-2022 13:14-0500 Heart rate 80 /min Keaton Wardsboro PA-C Work Phone: [facility] 04-01-2022 13:14-0500 SaO2% (BldA) [Mass fraction] 97 % Keaton Wardsboro PA-C Work Phone: [facility] 04-01-2022 13:14-0500 Systolic blood pressure 122 mm[Hg] Keaton Wardsboro PA-C Work Phone: [facility] 03-25-2022 13:49-0500 Diastolic blood pressure 88 mm[Hg] Sharmaine Haagen RECLAMATION WORKER.MOTOR OPERATOR Work Phone: [facility] 03-25-2022 13:49-0500 Heart rate 85 /min Sharmaine Haagen RECLAMATION WORKER.MOTOR OPERATOR Work Phone: [facility] 03-25-2022 13:49-0500 Respiratory rate 18 /min Sharmaine Haagen RECLAMATION WORKER.MOTOR OPERATOR Work Phone: [facility] 03-25-2022 13:49-0500 SaO2% (BldA) [Mass fraction] 96 % Sharmaine Haagen RECLAMATION WORKER.MOTOR OPERATOR Work Phone: [facility] 03-25-2022 13:49-0500 Systolic blood pressure 134 mm[Hg] Sharmaine Haagen RECLAMATION WORKER.MOTOR OPERATOR Work Phone: [facility] 03-14-2022 16:17-0500 Body height 167.6 cm Gerber Meier MD Work Phone: [facility] 03-14-2022 16:17-0500 Body temperature 98.1 [degF] Gerber Meier MD Work Phone: [facility] 03-14-2022 16:17-0500 Body weight 136.08 kg Gerber Meier MD Work Phone: [facility] 03-14-2022 16:17-0500 Diastolic blood pressure 90 mm[Hg] Gerber Meier MD Work Phone: [facility] 03-14-2022 16:17-0500 Heart rate 79 /min Gerber Meier MD Work Phone: [facility] 03-14-2022 16:17-0500 SaO2% (BldA) [Mass fraction] 98 % Gerber Meier MD Work Phone: [facility] 03-14-2022 16:17-0500 Systolic blood pressure 136 mm[Hg] Gerber Meier MD Work Phone: [facility] 02-25-2022 19:48-0500 Body temperature 98.29 [degF] Ayesha Praisler-Wood RECLAMATION WORKER.MOTOR OPERATOR Work Phone: [facility] 02-25-2022 19:48-0500 Body weight 140.62 kg Ayesha Praisler-Wood RECLAMATION WORKER.MOTOR OPERATOR Work Phone: [facility] 02-25-2022 19:48-0500 Diastolic blood pressure 80 mm[Hg] Ayesha Praisler-Wood RECLAMATION WORKER.MOTOR OPERATOR Work Phone: [facility] 02-25-2022 19:48-0500 Heart rate 118 /min Ayesha Praisler-Wood RECLAMATION WORKER.MOTOR OPERATOR Work Phone: [facility] 02-25-2022 19:48-0500 Respiratory rate 20 /min Ayesha Praisler-Wood RECLAMATION WORKER.MOTOR OPERATOR Work Phone: [facility] 02-25-2022 19:48-0500 SaO2% (BldA) [Mass fraction] 98 % Ayesha Praisler-Wood RECLAMATION WORKER.MOTOR OPERATOR Work Phone: [facility] 02-25-2022 19:48-0500 Systolic blood pressure 132 mm[Hg] Ayesha Praisler-Wood RECLAMATION WORKER.MOTOR OPERATOR Work Phone: [facility] Encounters Encounter Date Encounter Type Care Provider Facility Start: 04-13-2023 Telephone encounter Gerber Meier MD Work Phone: [facility] Procedures Date Procedure Procedure Detail Performing Clinician Start: 02-25-2023 Lipid 1996 panel - Serum or Plasma Gerber Meier MD Work Phone: Start: 05-16-2022 Colonoscopy Keaton Hall PA-C Work Phone: Start: 05-13-2022 History of cholecystectomy S/P cholecystectomy [facility] Start: 03-18-2022 Us abdominal real time w/image limited Gerber Meier MD Work Phone: Start: 02-25-2022 COVID WITH FLUA+B, ROUTINE Ayesha Brown APRN.MOTOR OPERATOR Work Phone: Start: 12-26-2021 End: 12-26-2021 Mammography Bulk Order Provider Start: 12-15-2018 Mammography Gerber Meier MD Work Phone: Start: 01-11-2014 Lipid 1996 panel - Serum or Plasma Ed Thomason MD Work Phone: History of cholecystectomy S/P cholecyste ctomy Keaton Hall PA-C Work Phone: Plan of Treatment Date Care Activity Detail Author Start: 05-16-2032 Colonoscopy COLONOSCOPY [facility] Start: 05-16-2032 COLORECTAL CANCER SCREENING COLORECTAL CANCER SCREENING [facility] Start: 05-16-2032 Screening for malignant neoplasm of colon [facility] Start: 02-26-2028 Lipid panel Lipid Screening [facility] Start: 02-25-2026 Diabetes Screening Diabetes Screening [facility] Start: 03-15-2025 DIABETES SCREEN DIABETES SCREEN [facility] Start: 03-15-2025 Diabetes Screening Diabetes Screening [facility] Start: 02-26-2024 Annual PCP Team Chronic Disease Visit Annual PCP Team Chronic Disease Visit [facility] Start: 04-01-2023 BP CONTROLLED (<130/80) BP CONTROLLED (<130/80) [facility] Start: 03-25-2023 ANNUAL PCP TEAM CHRONIC DISEASE VISIT ANNUAL PCP TEAM CHRONIC DISEASE VISIT [facility] Start: 03-14-2023 ANNUAL PCP TEAM CHRONIC DISEASE VISIT ANNUAL PCP TEAM CHRONIC DISEASE VISIT [facility] Start: 12-26-2022 Mammography [facility] Start: 12-26-2022 Screening for malignant neoplasm of breast Mammogram Screening [facility] Start: 11-15-2022 End: 01-15-2023 CBC W Auto Differential panel - Blood [facility] Work Phone: Immunizations Immunization Date Immunization Notes Care Provider Fa kimberly 04-21-2019 influenza virus vaccine, unspecified formulation Ed Thomason MD Work Phone: [facility] 01-15-2009 influenza virus vaccine, unspecified formulation Gerber Meier MD Work Phone: [facility] 01-13-2008 influenza virus vaccine, unspecified formulation Gerber Meier MD Work Phone: [facility] Work Phone: 01-10-2005 influenza virus vaccine, unspecified formulation Gerber Meier MD Work Phone: [facility] Work Phone: Payers Date Payer Category Payer Medicaid [id number] 2022 Private Health Insurance [employer]NA HU[employer] MEDICAID [facility] [id number] 2022-Present [address] [address] [place] [address] Medicaid [id number] 2020 Unknown [employer] CARD PPO OOS [id number] 2020-Present [phone] [address] [place] [address] PPO [id number] 2020 Unknown [employer] BL[employer] CARD PPO OOS [id number] 2020-Present [phone] [address] [place] [id number] PPO [id number] 2020 Unknown [id number] Social History Date Type Detail Facility Start: 05-25-2015 End: 03-14-2022 Tobacco smoking status NHIS Occasional tobacco smoker [facility] Work Phone: History of tobacco use Cigarette Smoker [facility] Work Phone: Start: 05-25-2015 End: 04-01-2022 Tobacco use and exposure Smokeless tobacco non-user [facility] Work Phone: Start: 05-08-2021 End: 04-08-2023 Alcohol intake Current drinker of alcohol (finding) [facility] Start: 06-10-2012 History SDOH Alcohol Comment occasional, NOT WHILE [facility] Start: 10-28-2007 End: 04-01-2022 Tobacco Comment social [facility] Start: 1970 Sex Assigned At Not on file C [facility] Start: 12-16-2021 End: 12-26-2021 Exposure to SARS-CoV-2 (event) Not sure [facility] Start: 04-01-2022 Tobacco smoking stat us AZIS Ex-smoker [facility] History of tobacco use Current smoker [facility] Start: 11-15-2022 End: 02-09-2023 History of Social function [facility] Start: 11-15-2022 End: 02-09-2023 Tobacco use panel [facility] National Score (1-100), lower number is lower risk 70 [facility] Start: 05-13-2022 Gender identity Identifies as female gender (finding) [facility] Clinical Notes 09-03-2015 to 04-13-2023 Telephone Encounter - Malissa Scanlon Ma - 04/13/2023 8:59 AM ESTTelephone Encounter - Haydee Villa - 04/13/2023 8:35 AM ESTTelephone Encounter - Raj Pina RN - 11/24/2022 2:44 PM EDT Note Date & Type Note Facility 04-13-2023 Miscellaneous Notes Patient has been identified by name and date of : Yes, Provider Dr. Meier Date April 13, 2023 Time 8:59 AM Patient phones for refill(s): Requested Prescriptions No prescriptions requested or ordered in this encounter Date of last office visit in primary care: 02/25/2023 Date of next office visit in primary care: Visit date not found (appt scheduled in July was cancelled due to Provider being out). Last Rx: 10/07/22 #60 w/5. Please advise. Thank you. Malissa Scanlon Ma. Mariela Colbert is calling Gerber Meier MD today with concern regarding Medication Problem Patient is calling in today stating that she lost her medication; she has torn her house apart and can not find. [facility]; please contact patient to let her know. pantoprazole DR (PROTONIX) 40 mg tablet 60 tablet 5 10/07/2022 04/05/2023 Sig: Take 1 tablet by mouth twice daily. Take on empty stomach, 1/2 hr before meal. Sent to pharmacy as: pantoprazole DR (PROTONIX) 40 mg tablet Class: Normal Patient has been identified by name and birthdate. Duration of symptoms: N/A Person calling: self Call patient at: at home [phone] (home) [phone] (cell) Was an appointment scheduled: No Closing statement: Results or non-symptom based questions: Thank you for calling [facility], your call will be returned within the next business day. Haydee Love documented in this encounter [facility] 02-25-2023 Note HNO ID: [id number] Author: Jordyn Kaur RT(R) Service: Radiology Author Type: Technologist Type: Progress Notes Filed: 02/25/2023 4:19 PM Note Text: Radiology Service Progress Note PATIENT NAME: Mariela Orozco DATE OF SERVICE: February 25, 2023 TIME: 4:06 PM PATIENT IDENTITY VERIFICATION COMPLETED USING TWO (2) IDENTIFIERS: Name and Date of confirmed by patient verbally. FALL SCREENING: Has the patient had 2 falls in the last year or 1 fall with injury or currently using an Ambulatory Assistive Device (Walker, Cane, Wheelchair, Crutches, etc.)? No PATIENT GENDER DATA: Female. status: : No status: NO. PATIENT RELEVANT IMPLANT DATA REVIEWED: Yes RADIOLOGY DEPARTMENT: General X-ray: Exam(s) Completed: Chest X-Ray PERIPHERAL IV DATA: Not applicable SIGNED BY: RT Maya(R) February 25, 2023 4:06 PM [facility] 02-25-2023 Note HNO ID: [id number] Author: Gerber Meier MD Service: ? Author Type: Physician Type: Progress Notes Filed: 02/25/2023 4:54 PM Note Text: Patient presents with: Cough HPI: Patient presents today for office visit for follow up. Patient presents today complaining of increased cough. Duration: 2 months. Cough is productive:Some. Fever: :unsure. Hasn't checked. Shortness of breath:No. Sore throat :strep exposure. Not really sore today. Ear Pain :No. Chest Pain :No. Previous treatments tried: using robitussin. Would like tessalon Just hasn't felt well for 2 months Using protonix and carafate and still with dyspepsia. Still has occasional epigastric pain. Was to follow with Dr Friend further but did not. Has gained weight and wants to discuss bariatrics. Suggested she work out her gi issues first. MEDICATIONS: Current Outpatient Medications Medication Sig sucralfate (CARAFATE) 1 gram tablet Take 1 tablet by mouth four times daily. bisoprolol-hydroCHLOROthiazide (ZIAC) 5-6.25 mg per tablet Take 1 tablet by mouth once daily. pantoprazole DR (PROTONIX) 40 mg tablet Take 1 tablet by mouth twice daily. Take on empty stomach, 1/2 hr before meal. ondansetron orally disintegrating (ZOFRAN ODT) 4 mg disintegrating tablet Ondansetron Ondansetron Active 4 MG EVERY 8 HOURS NEEDED January 22, 2019 10:03pm 01-22-2019 [facility] ([id number]) albuterol HFA (VENTOLIN HFA) 90 mcg/actuation inhaler Inhale 2 Puffs as instructed every 4 hours as needed. Potassium 99 mg tab Take by mouth. OTC albuterol HFA (PROVENTIL HFA, VENTOLIN HFA) 90 mcg/actuation inhaler Inhale 2 Puffs as instructed every 4 hours as needed. aluminum chloride (DRYSOL) 20 % external solution Apply to affected area daily at bedtime. docusate sodium (COLACE) 100 mg capsule Take 1 capsule by mouth twice daily as needed for Constipation. loratadine (CLARITIN) 10 mg tablet Take 1 tablet by mouth once daily. Estradiol (YUVAFEM) 10 mcg tab vaginal tablet Use 1 tablet vaginally once daily. Daily for 2 weeks, followed by 1 tablet intravaginally twice weekly. COMPOUNDED PRESCRIPTION ORTHOTICS CUSTOM PAIR FOR SHOES DX PLANTAR FASC Vitamin w/ Iron ( PLUS, CALCIUM CARB,) 27 mg iron- 1 mg tab Take 1 tablet by mouth once daily. (Patient not taking: Reported on 11/15/2022) zolpidem (AMBIEN) 10 mg tab Take 1 tablet by mouth at bedtime as needed for up to 30 days. FOR INSOMNIA fluticasone (FLONASE) 50 mcg/actuation nasal spray instill 1 spray into each nostril at bedtime citalopram (CELEXA) 40 mg tablet Take 1 tablet by mouth once daily. clonazePAM (KLONOPIN) 1 mg tablet Take 0.5-1 tablets by mouth twice daily as needed. No current facility-administered medications for this visit. ALLERGIES: ALLERGIES Allergen Reactions Imitrex [Sumatripta* Other: See Comments chest pain, dyspnea Paxil [Paroxetine H* Other: See Comments Hot flashes Sea Food [Shellfis* Swelling Zoloft [Sertraline * Unknown Zyprexa [Olanzapine] Other: See Comments Weight gain PAST MEDICAL HISTORY Diagnosis Date Allergic rhinitis due to pollen Anemia Chlamydia 1989+ Essential hypertension, benign 03/22/2014 Fibroid Generalized anxiety disorder Anxiety, Generalized GERD (gastroesophageal reflux disease) 07/19/2010 Herpes simplex without mention of complication Meralgia paraesthetica 03/30/2012 Migraine, unspecified, with intractable migraine, so stated, without mention of status migrainosus Migraine Obesity, unspecified Severe anxiety with panic 01/25/2016 Sleep disorder 04/23/2015 PAST SURGICAL HISTORY Procedure Laterality Date COLONOSCOPY 05/16/2022 DANDC (MISSED AB 1ST TRIMESTER) 06/10/2012 EGD 05/16/2022 ESOPHAGOGASTRODUODENOSCOPY TRANSORAL DIAGNOSTIC 01/12/2013 EGD LAPS SURG CHOLECYSTECTOMY W/CHOLANGIOGRAPHY 08/27/2015 failed IOC LAPS VAGINAL HYSTERECT > 250 GM RMVL TUBEAND/OVAR 01/18/2015 LAVH, LSO, right salpingectomy LUNG PERFUSION + V[facility]ILATION [facility] - See scanned documents FAMILY HISTORY Problem Relation Age of Onset Cancer Mother Hypertension Father Cancer Father prostate cancer DVT Father Alzheimer's Disease Paternal Grandmother other (fibroids) Sister 2 or 3 sisters Cancer Brother esophageal Diabetes Sister dm Social History Tobacco Use Smoking status: Former Years: 8 Types: Cigarettes Smokeless tobacco: Never Tobacco comments: social Vaping Use Vaping Use: Former Substance Use Topics Alcohol use: Yes Comment: social Drug use: No Reviewed current medications, allergies, past medical history, surgical history, family history and social history today. REVIEW OF SYSTEMS All other reviewed and negative other than HPI. HEALTH MAINTENANCE: Reviewed health maintenance issues today and recommended the following in detail. Mammogram Screening -recommended. VITALS: BP 148/92 Pulse 74 Temp 36.9 (more content not included)... [facility] 02-04-2023 Note Patient Outreach (IN TMMN) MARIELA OROZCO ([id number]) 1970 F Date Time Provider Department 02/04/23 GERBER MEIER During your visit today, we recorded the following information about you: Allergies As of Date: 02/04/2023 Noted Allergy Reaction IMITREX (SUMATRIPTAN SUCCINATE) 05/12/2013 14 - Other: See Comments Comments: chest pain, dyspnea PAXIL (PAROXETINE HCL) 10/28/2004 14 - Other: See Comments Comments: Hot flashes Sea Food (SHELLFISH DERIVED) 09/13/2015 7 - Swelling ZOLOFT (SERTRALINE HCL) 07/07/2005 16 - Unknown ZYPREXA (OLANZAPINE) 10/28/2004 14 - Other: See Comments Comments: Weight gain Date Reviewed: 11/15/2022 Reviewed by: Emmy Orozco MA - Fully Assessed Visit Diagnosis:Encounter for screening mammogram for breast cancer [Z12.31] Order(s):[facility] SCREENING [[id number]] Order #: [id number] FUTURE Prescriptions as of 02/09/2023 - bisoprolol-hydroCHLOROthiazide (ZIAC) 5-6.25 mg per tablet Take 1 tablet by mouth once daily. - pantoprazole DR (PROTONIX) 40 mg tablet Take 1 tablet by mouth twice daily. Take on empty stomach, 1/2 hr before meal. - ondansetron orally disintegrating (ZOFRAN ODT) 4 mg disintegrating tablet Ondansetron Ondansetron Active 4 MG EVERY 8 HOURS NEEDED January 22, 2019 10:03pm 01-22-2019 [facility] ([id number]) - sucralfate (CARAFATE) 1 gram tablet Take 1 tablet by mouth four times daily. - albuterol HFA (VENTOLIN HFA) 90 mcg/actuation inhaler Inhale 2 Puffs as instructed every 4 hours as needed. - Potassium 99 mg tab Take by mouth. OTC - albuterol HFA (PROVENTIL HFA, VENTOLIN HFA) 90 mcg/actuation inhaler Inhale 2 Puffs as instructed every 4 hours as needed. - aluminum chloride (DRYSOL) 20 % external solution Apply to affected area daily at bedtime. - docusate sodium (COLACE) 100 mg capsule Take 1 capsule by mouth twice daily as needed for Constipation. - loratadine (CLARITIN) 10 mg tablet Take 1 tablet by mouth once daily. - Estradiol (YUVAFEM) 10 mcg tab vaginal tablet Use 1 tablet vaginally once daily. Daily for 2 weeks, followed by 1 tablet intravaginally twice weekly. - COMPOUNDED PRESCRIPTION ORTHOTICS CUSTOM PAIR FOR SHOES DX PLANTAR FASC - Vitamin w/ Iron ( PLUS, CALCIUM CARB,) 27 mg iron- 1 mg tab Take 1 tablet by mouth once daily. - zolpidem (AMBIEN) 10 mg tab Take 1 tablet by mouth at bedtime as needed for up to 30 days. FOR INSOMNIA - fluticasone (FLONASE) 50 mcg/actuation nasal spray instill 1 spray into each nostril at bedtime - citalopram (CELEXA) 40 mg tablet Take 1 tablet by mouth once daily. - clonazePAM (KLONOPIN) 1 mg tablet Take 0.5-1 tablets by mouth twice daily as needed. Meds Comments as of 09/26/2017: Pt does not use Lidex, no gabapentin, no ibuprofen, no naprosyn or carafate (pt would not verify all medications as she just did it per office last week ) 09/26/2017 TP Problem List As Of Date 02/04/2023 Noted Resolved MYALGIA AND MYOSITIS NOS [[id number]] 10/28/2004 Allergic rhinitis [J30.9] 07/07/2005 DYSMETABOLIC SYNDROME X [E88.810] 05/19/2006 IRRITABLE COLON [K58.9] 05/19/2006 GERD (gastroesophageal reflux disease) [K21.9] 07/19/2010 Tear of left meniscus as current injury [S83.20*03/20/2011 04/29/2011 Tear of medial cartilage or meniscus of knee, c*04/15/2011 04/29/2011 Knee MCL sprain [S83.419A] 04/29/2011 05/26/2014 Family history of breast cancer in first degree*12/23/2011 Genital warts [A63.0] 12/23/2011 05/26/2014 Meralgia paraesthetica [G57.10] 03/30/2012 Essential hypertension, benign [I10] 03/22/2014 Endometrial thickening on ultra sound [R93.89] 11/27/2014 02/27/2015 Menorrhagia with regular cycle [N92.0] 11/27/2014 02/27/2015 Generalized anxiety disorder [F41.1] 12/26/2014 03/07/2021 Arthritis of both knees [M17.0] 01/01/2015 Intramural leiomyoma of uterus [D25.1] 01/17/2015 02/27/2015 Morbid obesity due to excess calories (HCC) [E6*04/23/2015 Recurrent major depressive disorder (HCC) [F33.*04/23/2015 Sleep disorder [G47.9] 04/23/2015 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] 04/23/2015 12/28/2015 Plantar fasciitis of left foot [M72.2] 04/23/2015 Contusion of knee [S80.00XA] 06/14/2015 01/25/2016 Acute cholecystitis with chronic cholecystitis *09/03/2015 01/25/2016 Severe anxiety with panic [F41.0] 01/25/2016 Intractable migraine without status migrainosus*07/01/2016 Hypersomnia, unspecified [G47.10] 11/04/2016 JES (obstructive sleep apnea) [G47.33] 04/18/2019 Umbilical hernia without obstruction or gangren*01/17/2021 History of Helicobacter pylori infection [Z86.1*05/13/2022 Encounter for screening for malignant neoplasm *05/13/2022 S/P cholecystectomy [Z90.49] 05/13/2022 Bilateral upper abdominal pain [R10.11, R10.12] 05/13/2022 Belching [R14.2] 05/13/2022 Encounter Status:Closed by EPIC, PRODUSER on 1 (more content not included)... [facility] 11-24-2022 Miscellaneous Notes Patient reports she is out of medication. Patient has been identified by name and date of : Yes, Provider Hardeep Date 11-24-22 Time 2:45 pm Patient phones for refill(s): Requested Prescriptions Pending Prescriptions Disp Refills bisoprolol-hydroCHLOROthiazide (ZIAC) 5-6.25 mg per tablet 90 tablet 1 Sig: Take 1 tablet by mouth once daily. Date of last office visit with pcp: 03-05-22. Next appt: none Last 2 Encounter Wt Readings: Date: Wt: 11/15/2022 136.1 kg (300 lb) 04/01/2022 135.2 kg (298 lb) Previous labs/tests for medication: Blood Pressure: BUN (mg/dL) Date Value 03/15/2022 6 09/05/2015 8 Sodium (mmol/L) Date Value 03/15/2022 139 09/05/2015 138 Last 1 Encounter BP Readings: Date: BP: 11/15/2022 130/100 Please advise. Thank you. Raj Pina RN documented in this encounter [facility] 11-16-2022 Miscellaneous Notes Pt was notified of the results. Pt verbalized understanding. Emmy Orozco MA Patient lab work came back all within normal limits. Patient should follow-up with primary care if symptoms persist. documented in this encounter [facility] 11-15-2022 Note HNO ID: [id number] Author: Ed Thomason MD Service: ? Author Type: Physician Type: Progress Notes Filed: 11/15/2022 11:14 AM Note Text: Patient presents with: Nose Problem: Blood clots in nose, won't stop bleeding, FOLEY started last night HPI: Nose bleeds: Last night had rhinorrhea and swallowing drainage. She had clots coming out when she woke up. Blood was coming out of both nostrils. She had bleeding again at work. She has been treating it with cotton or tissue in her nostrils. No abnormal bleeding (bruising, bleeding from gums, status post hysterectomy, blood in urine, blood in stool). She has a scratchy throat. Denies recent illness or injury. No dizziness. MEDICATIONS: pantoprazole DR (PROTONIX) 40 mg tablet Take 1 tablet by mouth twice daily. Take on empty stomach, 1/2 hr before meal. bisoprolol-hydroCHLOROthiazide (ZIAC) 5-6.25 mg per tablet Take 1 tablet by mouth once daily. ondansetron orally disintegrating (ZOFRAN ODT) 4 mg disintegrating tablet Ondansetron Ondansetron Active 4 MG EVERY 8 HOURS NEEDED January 22, 2019 10:03pm 01-22-2019 [facility] ([id number]) sucralfate (CARAFATE) 1 gram tablet Take 1 tablet by mouth four times daily. albuterol HFA (VENTOLIN HFA) 90 mcg/actuation inhaler Inhale 2 Puffs as instructed every 4 hours as needed. Potassium 99 mg tab Take by mouth. OTC albuterol HFA (PROVENTIL HFA, VENTOLIN HFA) 90 mcg/actuation inhaler Inhale 2 Puffs as instructed every 4 hours as needed. aluminum chloride (DRYSOL) 20 % external solution Apply to affected area daily at bedtime. docusate sodium (COLACE) 100 mg capsule Take 1 capsule by mouth twice daily as needed for Constipation. loratadine (CLARITIN) 10 mg tablet Take 1 tablet by mouth once daily. Estradiol (YUVAFEM) 10 mcg tab vaginal tablet Use 1 tablet vaginally once daily. Daily for 2 weeks, followed by 1 tablet intravaginally twice weekly. COMPOUNDED PRESCRIPTION ORTHOTICS CUSTOM PAIR FOR SHOES DX PLANTAR FASC fluticasone (FLONASE) 50 mcg/actuation nasal spray instill 1 spray into each nostril at bedtime citalopram (CELEXA) 40 mg tablet Take 1 tablet by mouth once daily. clonazePAM (KLONOPIN) 1 mg tablet Take 0.5-1 tablets by mouth twice daily as needed. Vitamin w/ Iron ( PLUS, CALCIUM CARB,) 27 mg iron- 1 mg tab Take 1 tablet by mouth once daily. (Patient not taking: Reported on 11/15/2022) zolpidem (AMBIEN) 10 mg tab Take 1 tablet by mouth at bedtime as needed for up to 30 days. FOR INSOMNIA ALLERGIES: ALLERGIES Allergen Reactions Imitrex [Sumatripta* Other: See Comments chest pain, dyspnea Paxil [Paroxetine H* Other: See Comments Hot flashes Sea Food [Shellfis* Swelling Zoloft [Sertraline * Unknown Zyprexa [Olanzapine] Other: See Comments Weight gain VITALS: BP 130/100 Pulse 60 Temp 36.3 ?C (97.3 ?F) Resp 23 Wt 136.1 kg (300 lb) [facility] 12/27/2014 SpO2 97% BMI 48.42 kg/m? Last 4 Encounter BP Readings: Date: BP: 11/15/2022 130/100 05/16/2022 83/60 05/16/2022 131/81 04/01/2022 122/78 PHYSICAL EXAM: GEN: pleasant, no acute distress, alert, tangential conversation HEENT: PERRL, EOMI, MMM NOSE: blood on cotton removed from nostrils. Small blood in both nasal passages. No visible erosions or active bleeding. NECK: supple, no lymphadenopathy, no thyromegaly HEART: regular rate, regular rhythm, no murmurs LUNGS: clear to auscultation, no wheezes or crackles, no increased WOB EXT: no clubbing, no cyanosis, no edema ASSESSMENT/PLAN: 1. Epistaxis - ICD9: 784.7, ICD10: R04.0 Posterior source of bleeding. Avoid forceful nose blowing. She may use a humidifier. - CONSULT TO ENT if she has recurrent issues. Follow up in the ER with persistent bleeding or dizziness. - CBC + DIFF Ed Thomason MD [facility] 11-15-2022 History of Presen t illness Narrative Patient presents with: Nose Problem: Blood clots in nose, won't stop bleeding, FOLEY started last night HPI: Nose bleeds: Last night had rhinorrhea and swallowing drainage. She had clots coming out when she woke up. Blood was coming out of both nostrils. She had bleeding again at work. She has been treating it with cotton or tissue in her nostrils. No abnormal bleeding (bruising, bleeding from gums, status post hysterectomy, blood in urine, blood in stool). She has a scratchy throat. Denies recent illness or injury. No dizziness. MEDICATIONS: pantoprazole DR (PROTONIX) 40 mg tablet Take 1 tablet by mouth twice daily. Take on empty stomach, 1/2 hr before meal. bisoprolol-hydroCHLOROthiazide (ZIAC) 5-6.25 mg per tablet Take 1 tablet by mouth once daily. ondansetron orally disintegrating (ZOFRAN ODT) 4 mg disintegrating tablet Ondansetron Ondansetron Active 4 MG EVERY 8 HOURS NEEDED January 22, 2019 10:03pm 01-22-2019 [facility] ([id number]) sucralfate (CARAFATE) 1 gram tablet Take 1 tablet by mouth four times daily. albuterol HFA (VENTOLIN HFA) 90 mcg/actuation inhaler Inhale 2 Puffs as instructed every 4 hours as needed. Potassium 99 mg tab Take by mouth. OTC albuterol HFA (PROVENTIL HFA, VENTOLIN HFA) 90 mcg/actuation inhaler Inhale 2 Puffs as instructed every 4 hours as needed. aluminum chloride (DRYSOL) 20 % external solution Apply to affected area daily at bedtime. docusate sodium (COLACE) 100 mg capsule Take 1 capsule by mouth twice daily as needed for Constipation. loratadine (CLARITIN) 10 mg tablet Take 1 tablet by mouth once daily. Estradiol (YUVAFEM) 10 mcg tab vaginal tablet Use 1 tablet vaginally once daily. Daily for 2 weeks, followed by 1 tablet intravaginally twice weekly. COMPOUNDED PRESCRIPTION ORTHOTICS CUSTOM PAIR FOR SHOES DX PLANTAR FASC fluticasone (FLONASE) 50 mcg/actuation nasal spray instill 1 spray into each nostril at bedtime citalopram (CELEXA) 40 mg tablet Take 1 tablet by mouth once daily. clonazePAM (KLONOPIN) 1 mg tablet Take 0.5-1 tablets by mouth twice daily as needed. Vitamin w/ Iron ( PLUS, CALCIUM CARB,) 27 mg iron- 1 mg tab Take 1 tablet by mouth once daily. (Patient not taking: Reported on 11/15/2022) zolpidem (AMBIEN) 10 mg tab Take 1 tablet by mouth at bedtime as needed for up to 30 days. FOR INSOMNIA ALLERGIES: ALLERGIES Allergen Reactions Imitrex [Sumatripta* Other: See Comments chest pain, dyspnea Paxil [Paroxetine H* Other: See Comments Hot flashes Sea Food [Shellfis* Swelling Zoloft [Sertraline * Unknown Zyprexa [Olanzapine] Other: See Comments Weight gain VITALS: BP 130/100 Pulse 60 Temp 36.3 C (97.3 F) Resp 23 Wt 136.1 kg (300 lb) LMP 12/27/2014 SpO2 97% BMI 48.42 kg/m Last 4 Encounter BP Readings: Date: BP: 11/15/2022 130/100 05/16/2022 83/60 05/16/2022 131/81 04/01/2022 122/78 PHYSICAL EXAM: GEN: pleasant, no acute distress, alert, tangential conversation HEENT: PERRL, EOMI, MMM NOSE: blood on cotton removed from nostrils. Small blood in both nasal passages. No visible erosions or active bleeding. NECK: supple, no lymphadenopathy, no thyromegaly HEART: regular rate, regular rhythm, no murmurs LUNGS: clear to auscultation, no wheezes or crackles, no increased WOB EXT: no clubbing, no cyanosis, no edema ASSESSMENT/PLAN: 1. Epistaxis - ICD9: 784.7, ICD10: R04.0 Posterior source of bleeding. Avoid forceful nose blowing. She may use a humidifier. - CONSULT TO ENT if she has recurrent issues. Follow up in the ER with persistent bleeding or dizziness. - CBC + DIFF Ed Thomason MD documented in this encounter [facility] 08-20-2022 Miscellaneous Notes Consult to gastro scheduled for 11/05/2022. Closing TE. Clarice Boogie RN Placed. Patient returns call and provider message reviewed. Patient would like a second opinion. Consult pended with previous diagnosis. Clarice Boogie RN Left message for patient to call office back Linda Garnett Ma I reviewed what I can see. There is nothing I can see that would require antibiotics or would be amenable to a quick fix that I can see. I would follow with them. I can get a second gi opinion for her to a [facility] gi if she would like. I would also do the stool test they gave her. Patient calls to ask provider to review recent labs completed at [facility]. Patient is upset that Dr. Jensen's office won't prescribe an antibiotic for her on-going abdominal pain and upset stomach. She reports they told her there was a bacteria in the colon but not H-pylori. Discussed good bacteria in the gi tract. Patient reports no something that needs an antibiotic and asking Dr. Meier to review. She reports all they did was labs and give her something to do a stool sample. Lab results available in Epic. Carafate and watching diet does help with abdominal pain some. Follow-up with Dr. Jensen isn't until November 2022 and patient is going to [place] next month and wants to feel better. Clarice Boogie RN documented in this encounter [facility] 06-30-2022 Miscellaneous Notes Faxed referral and office notes to Dr Jensen's office. Dr Jensen # [phone] Bernie Schreiber LPN Referral order placed Patient called in stating she was to be referred to Dr. Jensen, gastroenterology, here in [place]. She is not able to make an appointment until they have a referral. Please send referral along with records. Patient would like to be notified once completed at [phone]. documented in this encounter [facility] 05-23-2022 Note HNO ID: [id number] Author: Keaton Hall PA-C Service: ? Author Type: Physician News Cameraman Type: Progress Notes Filed: 05/29/2022 1:03 PM Note Text: In lieu of an in-person visit due to COVID-19 concerns, a virtual visit was performed on the patient. Patient is aware that I am not fully able to assess symptoms and do a full physical examination including vital signs assessment at this time. Patient consents to this encounter. FOLLOW UP VISIT - ENDOSCOPY NAME: [facility] NO.: [id number] DATE OF SERVICE: 05/23/2022 : 1970 REFERRING PHYSICIAN: Gerber Meier MD Mariela is a patient I am following with Dr. Trujillo for multiple abdominal complaints. Per my initial office consult visit on 04/01/22: The patient is a 52 year old female referred by primary care for endoscopy, due to multiple abdominal complaints. Patient is difficult historian. Notes upper abdominal and epigastric pain. Unsure of exact onset of symptoms, but states this has been much worse over the last few weeks. Notes a history of being treated for H. Pylori years ago, does not recall whether she had a follow-up test to confirm eradication. Symptoms are worsened with eating, somewhat improved with protonix and carafate. Pain ranges from mild aching to severe and sharp to where it almost doubles her over. Sometimes experiences hot flashes with eating. Notes increased gas and belching. She states she has been trying to watch her diet for months to try to be careful and avoid things that may worsen symptoms. States has been eating more fruit and vegetables. She had a prior cholecystectomy in 2016. Patient denies any change in bowel habits, weight changes, blood in stools, or black tarry stools. Denies family history of colon cancer in a first-degree relative. Has never had a screening colonoscopy. Patient's past medical history is significant for hypertension, anxiety, GERD, migraines, obesity, fatty liver. She follows with Dr. Meier in primary care for her chronic medical conditions. Patient denies chest pain, shortness of breath or recent hospitalizations. Denies problems with sedation in the past. Patient was scheduled for upper and lower endoscopy for further evaluation. Dr. Trujillo performed upper and lower endoscopy on 05/16/22. The patient was found to have gastritis. Colonoscopy showed two small polyps at the recto-sigmoid colon and ileocecal valve which were removed. Random biopsies were also obtained. Pathology demonstrated: FINAL DIAGNOSIS A. Duodenum, biopsy: - Duodenal mucosa with patchy increase of intraepithelial lymphocytes and preserved villous architecture (see comment). B. Stomach, biopsy: - Gastric antral mucosa with patchy chronic active gastritis. - Immunostain for H. pylori to be reported in an addendum. C. Esophagus, distal, biopsy: - Squamous mucosa with features of reflux esophagitis. - Scant gastric cardia type mucosa, negative for intestinal metaplasia. D. Esophagus, mid, biopsy: - Squamous mucosa with no diagnostic abnormality. E. Colon, ileocecal valve, polyp, biopsy: - Colonic mucosa with mild melanosis coli. F. Colon, random biopsy: - Colonic mucosa with no diagnostic abnormality. G. Rectum, polyp, biopsy: - Hyperplastic polyp. Diagnosis Comment A. The presence of mildly increased intraepithelial lymphocytes in the setting of preserved villous architecture is a nonspecific finding. Possible etiologies include occult celiac disease, non-gluten food allergies, drug-induced injury, infections, small bowel bacterial overgrowth, peptic injury, inflammatory bowel disease, and other immune-mediated disorders, among others. Clinical and serology correlation is necessary. The patient notes no new complaints since the procedure, but states continues to have upper abdominal discomfort and is frustrated with persistence of her symptoms despite watching diet and taking PPI and carafate. On limited video-enabled visual exam: General: patient is alert, cooperative, pleasant and in no acute distress Normal speech and affect, answers all questions appropriately Assessment IMPRESSION: abdominal discomfort. Gastritis, negative for H. Pylori. Benign hyperplastic colon polyp, normal random colon biopsy PLAN: The operative findings and pathology report were reviewed with the patient, and the patient has had the opportunity to ask questions and have questions answered. If the patient notes any problems or changes in bowel function, the patient should contact me immediately. Otherwise I recommend follow up colonoscopy in 10 years. updated Recommend Gastroenterology consultation for further workup and serology. Patient declined referral to [facility] or [facility]. Patient states will contact Dr. Mikey Nixon to schedule appointment locally Patient verbaliz (more content not included)... [facility] 05-23-2022 History of Presen t illness Narrative In lieu of an in-person visit due to COVID-19 concerns, a virtual visit was performed on the patient. Patient is aware that I am not fully able to assess symptoms and do a full physical examination including vital signs assessment at this time. Patient consents to this encounter. FOLLOW UP VISIT - ENDOSCOPY NAME: Mariela Colbert [facility] NO.: [id number] DATE OF SERVICE: 05/23/2022 : 1970 REFERRING PHYSICIAN: Gerber Meier MD Mariela is a patient I am following with Dr. Trujillo for multiple abdominal complaints. Per my initial office consult visit on 04/01/22: The patient is a 52 year old female referred by primary care for endoscopy, due to multiple abdominal complaints. Patient is difficult historian. Notes upper abdominal and epigastric pain. Unsure of exact onset of symptoms, but states this has been much worse over the last few weeks. Notes a history of being treated for H. Pylori years ago, does not recall whether she had a follow-up test to confirm eradication. Symptoms are worsened with eating, somewhat improved with protonix and carafate. Pain ranges from mild aching to severe and sharp to where it almost doubles her over. Sometimes experiences hot flashes with eating. Notes increased gas and belching. She states she has been trying to watch her diet for months to try to be careful and avoid things that may worsen symptoms. States has been eating more fruit and vegetables. She had a prior cholecystectomy in 2016. Patient denies any change in bowel habits, weight changes, blood in stools, or black tarry stools. Denies family history of colon cancer in a first-degree relative. Has never had a screening colonoscopy. Patient's past medical history is significant for hypertension, anxiety, GERD, migraines, obesity, fatty liver. She follows with Dr. Meier in primary care for her chronic medical conditions. Patient denies chest pain, shortness of breath or recent hospitalizations. Denies problems with sedation in the past. Patient was scheduled for upper and lower endoscopy for further evaluation. Dr. Trujillo performed upper and lower endoscopy on 05/16/22. The patient was found to have gastritis. Colonoscopy showed two small polyps at the recto-sigmoid colon and ileocecal valve which were removed. Random biopsies were also obtained. Pathology demonstrated: FINAL DIAGNOSIS A. Duodenum, biopsy: - Duodenal mucosa with patchy increase of intraepithelial lymphocytes and preserved villous architecture (see comment). B. Stomach, biopsy: - Gastric antral mucosa with patchy chronic active gastritis. - Immunostain for H. pylori to be reported in an addendum. C. Esophagus, distal, biopsy: - Squamous mucosa with features of reflux esophagitis. - Scant gastric cardia type mucosa, negative for intestinal metaplasia. D. Esophagus, mid, biopsy: - Squamous mucosa with no diagnostic abnormality. E. Colon, ileocecal valve, polyp, biopsy: - Colonic mucosa with mild melanosis coli. F. Colon, random biopsy: - Colonic mucosa with no diagnostic abnormality. G. Rectum, polyp, biopsy: - Hyperplastic polyp. Diagnosis Comment A. The presence of mildly increased intraepithelial lymphocytes in the setting of preserved villous architecture is a nonspecific finding. Possible etiologies include occult celiac disease, non-gluten food allergies, drug-induced injury, infections, small bowel bacterial overgrowth, peptic injury, inflammatory bowel disease, and other immune-mediated disorders, among others. Clinical and serology correlation is necessary. The patient notes no new complaints since the procedure, but states continues to have upper abdominal discomfort and is frustrated with persistence of her symptoms despite watching diet and taking PPI and carafate. On limited video-enabled visual exam: General: patient is alert, cooperative, pleasant and in no acute distress Normal speech and affect, answers all questions appropriately Assessment IMPRESSION: abdominal discomfort. Gastritis, negative for H. Pylori. Benign hyperplastic colon polyp, normal random colon biopsy PLAN: The operative findings and pathology report were reviewed with the patient, and the patient has had the opportunity to ask questions and have questions answered. If the patient notes any problems or changes in bowel function, the patient should contact me immediately. Otherwise I recommend follow up colonoscopy in 10 years. updated Recommend Gastroenterology consultation for further workup and serology. Patient declined referral to [facility] or [facility]. Patient states will contact Dr. Jensen in [place] to schedule appointment locally Patient verbalized understanding of all above and agreed with the plan Diagnoses: (R10.11, R10.12) Bilateral upper abdominal discomfort (primary encounter diagnosis) (K29.60) Other gastritis without bleeding (K62.1) Hyperplastic rectal polyp I spent a total of 24 minutes on the date of the service which included preparing to see the patient, [id number] patient care, completing clinical documentation, obtaining and/or reviewing separately obtained history, counseling and educating the patient/family/caregiver, communicating with other HCPs (not separately reported), independently interpreting results (not separately reported), and communicating results to the patient/family/caregiver. Keaton Hall PA-C documented in this encounter [facility] 05-14-2022 Instructions Lavonne Florentino APRN.ANG - 05/14/2022 9:44 AM EDT PATIENT PREOPERATIVE INSTRUCTIONS Eddie Trujillo MD has scheduled you for your procedure at this surgery center: [facility]: [phone] -- [address] [address]. Please read below carefully for your personalized instructions. Dietary Restrictions: - Follow bowel prep instructions: clear liquids need to be stopped 2 hours prior to schedule arrival at facility Medications: Unless instructed differently below, stay on all of your medications until your surgery. Approved medications to take the morning of surgery with a sip of water: bisoprolol-HCTZ, pantoprazole, celexa if normally taken in the morning. Take evening/bedtime medications the night before surgery as you normally would. - Your pain medication may cause thinning of your blood. Please see directions for Blood Thinning Medications. - No diabetic medication the morning of surgery. If you start any new medications after today's visit, please contact the surgeon's office. Blood Thinning Medications: - Stop NSAIDS (Ibuprofen, Advil, Aleve, Motrin, Celebrex, Mobic, etc.) 7 days before surgery, as directed by your surgeon. - Stop Aspirin 7 days before surgery, as directed by your surgeon. - Stop Vitamin E, ALL multi-vitamins, herbals and dietary supplements 7 days before surgery. - You may take Tylenol (Acetaminophen) or any of your pain medications that do not contain aspirin or NSAIDS as needed. Important Reminders: - If you use CPAP/BIPAP, bring the machine with you to the surgery center. - If you are prescribed inhalers for breathing, continue using them. - Candy, mints, and tobacco products are NOT permitted the morning of surgery. - Hearing aids, dentures and glasses may be worn the morning of surgery. - NO jewelry, body piercings, makeup, hairpins or contacts are to be worn the day of surgery. If you develop symptoms such as a fever, cold, or flu, or have other changes to your health within TWO DAYS of scheduled surgery or the morning of surgery, please contact the surgery center above. Personal Belongings: -Please have photo ID and insurance cards. -If you do not have a copy of advance directives on file with us, please bring a copy with you on the day of surgery. - Leave ALL valuables and money at home or with family members. For Outpatient Procedures: - YOU MUST HAVE A RESPONSIBLE SPOOL MAKER TAKE YOU HOME. A EXPANSION ENVELOPE MAKER HAND OR CONTRACT ASSOCIATE CANNOT BE MADE A RESPONSIBLE SPOOL MAKER. - We recommend that a responsible person stays with you overnight to take care of you. - You cannot stay in a hotel alone after outpatient surgery. You will not be permitted to have your surgery, if you do not have someone to take care of you. Arrival Time for Surgery: - The Surgery Center or hospital where you are having surgery will call the afternoon before surgery (or Thursday for Thursday surgery) with a scheduled arrival time. - If you have not heard by 4 pm, please contact the surgery center above. Please be aware that emergency situations arise, which may delay or change your surgical time. If this happens, we will notify you as soon as possible and regret any inconvenience. If you already have an Advance Directive, please fax a copy to [phone] or email to for it to be added to your chart. If you do not have an Advance Directive, you can find the appropriate form and more information at [email or web address]. We recommend that you complete the Advance Directive form found on the website and bring it with you the day of your surgery. It can be witnessed and scanned into your chart that day. Lavonne Florentino APRN.CNP documented in this encounter [facility] 05-14-2022 History and physical note PREANESTHESIA CONSULT CLINIC TELEHEALTH VISIT This is a virtual visit using Alternative video platform. It required patient-provider interaction for the medical decision making as documented below. I have communicated my name and active licensure. The patient's identity and physical location were verified at the time of this visit. Either the patient or their legal patient account representative has been informed of the risks and benefits of and alternatives to treatment through a remote evaluation and consents to proceed with the evaluation remotely. Patient has been identified by name and date of : Yes This is a virtual visit using Alternative video platform. It require patient-provider interaction for the medical decision making as documented below. Reason for contact: PACC visit Accompanied by: Self Scheduled Surgery: EGD/COLONOSCOPY Subjective CHIEF COMPLAINT: Patient presents with: Anesthesia Consult HPI: This is a 52 year old female who presents for PACC scheduled for COLONOSCOPY/EGD. Severe abd pain in stomach starting around 01/2022, improved with pantoprazole/carafate but not resolved. Still has intermittent pains. Was having nausea that has improved with medication. Denies changes in bowel habits or blood in stool. ACTIVE PROBLEM LIST Myalgia and Myositis, Unspecified Allergic Rhinitis Dysmetabolic Syndrome X Irritable Bowel Syndrome Gerd (Gastroesophageal Reflux Disease) Family History of Breast Cancer in First Degree Relative Meralgia Paraesthetica Essential Hypertension, Benign Arthritis of Both Knees Morbid Obesity Due to Excess Calories (Hcc) Recurrent Major Depressive Disorder (Hcc) Sleep Disorder Plantar Fasciitis of Left Foot Severe Anxiety With Panic Intractable Migraine Without Status Migrainosus Hypersomnia, Unspecified Jes (Obstructive Sleep Apnea) Umbilical Hernia Without Obstruction Or Gangrene History of Helicobacter Pylori Infection Encounter for Screening for Malignant Neoplasm of Colon S/P Cholecystectomy Bilateral Upper Abdominal Pain Belching PAST MEDICAL HISTORY Diagnosis Date Allergic rhinitis due to pollen Anemia Chlamydia 1989+ Essential hypertension, benign 03/22/2014 Fibroid Generalized anxiety disorder Anxiety, Generalized GERD (gastroesophageal reflux disease) 07/19/2010 Herpes simplex without mention of complication Meralgia paraesthetica 03/30/2012 Migraine, unspecified, with intractable migraine, so stated, without mention of status migrainosus Migraine Obesity, unspecified Severe anxiety with panic 01/25/2016 Sleep disorder 04/23/2015 PAST SURGICAL HISTORY Procedure Laterality Date [facility] (MISSED AB 1ST TRIMESTER) 06/10/2012 ESOPHAGOGASTRODUODENOSCOPY TRANSORAL DIAGNOSTIC 01/12/2013 EGD LAPS SURG CHOLECYSTECTOMY W/CHOLANGIOGRAPHY 08/27/15 failed IOC LAPS VAGINAL HYSTERECT > 250 GM RMVL TUBE&/OVAR 01/18/15 LAVH, LSO, right salpingectomy LUNG PERFUSION + V[facility]ILATION [facility] - See scanned documents FAMILY HISTORY Problem Relation Age of Onset Cancer Mother Hypertension Father Cancer Father prostate cancer DVT Father Alzheimer's Disease Paternal Grandmother other (fibroids) Sister 2 or 3 sisters Cancer Brother esophageal Diabetes Sister dm Social History Tobacco Use Smoking status: Former Years: 8.00 Types: Cigarettes Smokeless tobacco: Never Tobacco comments: social Vaping Use Vaping Use: Former Substance Use Topics Alcohol use: Yes Comment: social Drug use: No ALLERGIES Allergen Reactions Imitrex [Sumatripta* Other: See Comments chest pain, dyspnea Paxil [Paroxetine H* Other: See Comments Hot flashes Sea Food [Shellfis* Swelling Zoloft [Sertraline * Unknown Zyprexa [Olanzapine] Other: See Comments Weight gain MEDICATIONS: Current Outpatient Medications Medication Sig bisoprolol-hydroCHLOROthiazide (ZIAC) 5-6.25 mg per tablet Take 1 tablet by mouth once daily. ondansetron orally disintegrating (ZOFRAN ODT) 4 mg disintegrating tablet Ondansetron Ondansetron Active 4 MG EVERY 8 HOURS NEEDED January 22, 2019 10:03pm 01-22-2019 [facility] ([id number]) sucralfate (CARAFATE) 1 gram tablet Take 1 tablet by mouth four times daily. pantoprazole DR (PROTONIX) 40 mg tablet Take 1 tablet by mouth twice daily. Take on empty stomach, 1/2 hr before meal. albuterol HFA (PROVENTIL HFA, VENTOLIN HFA) 90 mcg/actuation inhaler Inhale 2 Puffs as instructed every 4 hours as needed. loratadine (CLARITIN) 10 mg tablet Take 1 tablet by mouth once daily. Estradiol (YUVAFEM) 10 mcg tab vaginal tablet Use 1 tablet vaginally once daily. Daily for 2 weeks, followed by 1 tablet intravaginally twice weekly. fluticasone (FLONASE) 50 mcg/actuation nasal spray instill 1 spray into each nostril at bedtime citalopram (CELEXA) 40 mg tablet Take 1 tablet by mouth once daily. clonazePAM (KLONOPIN) 1 mg tablet Take 0.5-1 tablets by mouth twice daily as needed. albuterol HFA (VENTOLIN HFA) 90 mcg/actuation inhaler Inhale 2 Puffs as instructed every 4 hours as needed. Potassium 99 mg tab Take by mouth. OTC aluminum chloride (DRYSOL) 20 % external solution Apply to affected area daily at bedtime. docusate sodium (COLACE) 100 mg capsule Take 1 capsule by mouth twice daily as needed for Constipation. COMPOUNDED PRESCRIPTION ORTHOTICS CUSTOM PAIR FOR SHOES DX PLANTAR FASC Vitamin w/ Iron ( PLUS, CALCIUM CARB,) 27 mg iron- 1 mg tab Take 1 tablet by mouth once daily. zolpidem (AMBIEN) 10 mg tab Take 1 tablet by mouth at bedtime as needed for up to 30 days. FOR INSOMNIA No current facility-administered medications for this visit. COVID VACCINATION STATUS: unknown REVIEW OF SYSTEMS: Pain Assessment: General: No weight loss, malaise or fevers. Neuro: No history of TIA's, stroke, ELECTROPLATER tumor, impaired sensorium, hemiplegia, paraplegia or quadraplegia. No neurological symptoms or problems. Respiratory: Positive for JES, Negative for Pneumonia within 6 weeks (date) Cardiovascular: Positive for: Hypertension, Negative for CAD, Chest Pain, CHF, DVT/PE GI: See HPI, family hx of esophageal stomach cancer : No history of dysuria, frequency or incontinence,, stones or chronic kidney disease MULE SPINNER: Negative for abnormal vaginal bleeding, abnormal vaginal discharge. : Denies, Patient's last menstrual period was 12/27/2014. Endocrine: No history of diabetes. Has not taken steroids within the past 30 days. No history of endocrinological symptoms or problems. Hematology: No history of bleeding or clotting disorder. Pt is not taking anti-coagulation or platelet medications. No history of hematological symptoms or problems. Oncology: No history of CA metastasis, chemo within 30 days, or radiotherapy within 90 days. Has not lost 10% of body wt in 6 months. No history of oncological symptoms or problems. Psych: No history of psychiatric symptoms or problems. Musculoskeletal: Negative for joint pain or swelling, back pain or muscle pain. Skin: Negative for lesions, rash and itching. Objective PHYSICAL EXAM: Ht 5' 6 (1.68m) LMP 12/27/2014 VIDEO EXAM: (if completed, performed via video enabled technology) GENERAL: alert and appropriate, in no distress, well-hydrated, well nourished, and happy, smiling, interactive SKIN: no rash noted HEAD: normocephalic, no abnormality or lesion noted EYES: no injection and visual acuity is grossly normal EARS: hearing grossly normal NOSE: external nose normal without rhinorrhea OROPHARYNX: moist mucus membranes NECK: full ROM, no cervical LNs noted RESPIRATORY: breathing non-labored CHEST: equal chest rise with normal respiratory effort HEART: heart rate and rhythm regular by patient report with palpation of carotid artery and nodding head with heart beat ABDOMEN: soft and non-tender Diagnostic tests reviewed for today's visit: Lab Value Units Date High Low HB 13.9 g/dL 03/15/2022 15.5 11.5 HCT 45.1 % 03/15/2022 46.0 36.0 WBC 7.92 k/uL 03/15/2022 11.00 3.70 PLT 308 k/uL 03/15/2022 400 150 NA 139 mmol/L 03/15/2022 144 136 K 4.1 mmol/L 03/15/2022 5.1 3.7 GLUC 106 mg/dL 03/15/2022 99 74 BUN 6 mg/dL 03/15/2022 21 7 CREAT 0.98 mg/dL 03/15/2022 0.96 0.58 PTSEC No results within date range. INR No results within date range. APTT No results within date range. ALT 71 U/L 03/15/2022 38 7 AST 46 U/L 03/15/2022 35 13 TBILI 0.4 mg/dL 03/15/2022 1.3 0.2 TSH No results within date range. Lab Value Units Date High Low HCGQT No results within date range. UHCG No results within date range. HCG, BODY* No results within date range. Lab Value Units Date High Low ABORHD No results within date range. ABSCREEN No results within date range. Hemoglobin A1C (%) Date Value 12/28/2015 6.3 10/29/2004 5.7 HBA1C, [place] (%) Date Value 08/10/2009 6.2 Most recent EKG: Procedure Date : Dec 28 2015 16:04 Edit Date : Dec 31 2015 08:31 Diagnosis:SINUS BRADYCARDIA POSSIBLE LEFT ATRIAL ENLARGEMENT BORDERLINE ECG Impression/Recommendations ASSESSMENT: Essential hypertension, benign Assessment: treated with bisoprolol-HCTZ Monitored by PCP JES (obstructive sleep apnea) Assessment: Does not wear CPAP GERD (gastroesophageal reflux disease) Assessment: treated with pantoprazole, carafate. Reports family hx of esophageal or stomach cancer. Scheduled for EGD Morbid obesity due to excess calories (HCC) Assessment: BMI 48, Monitored by PCP METS: Walk indoors, such as around the house (1.75 METs) Do light work around the house, such as dusting or washing dishes (2.70 METs) Take care of self; that is eating, dressing, bathing, using the toilet (2.75 METs) Walk a block or two on level ground (2.75 METs) Do moderate work around the house such as vacuuming, sweeping floors, or carrying in groceries (3.50 METs) Do yardwork, such as raking leaves, weeding,or pushing a power mower (4.50 METs) Climb a flight of stairs or walk up a hill (5.50 METs) Patient denies any chest pain or undue shortness of breath with the above physical activity. ASA Class: 3 ANESTHESIA FINDINGS: Intubation History: No history of difficult intubation Significant Anesthesia Considerations: None and anxiety with anesthesia Airway Exam: General: Morbid obesity Mallampati Score is CLASS III ULBT: Class I - Lower incisors can bite the upper lip above the teresa line Neck: Normal appearance and function, Distance from hyoid to mentum during neck extension is at least 3 finger breaths Mouth: Normal tongue size and Mouth opening greater than 2 finger breaths Dentition: Intact Airway History: No abnormal airway history STOP BANG Score: JES does not use CPAP/BiPAP PLAN: This patient is optimally prepared for surgery. CONSULTS: Patient does not require consults for optimization at this time. The Following Tests/Procedures Have Been Initiated: Labs not indicated per PACC protocol, EKG not indicated per PACC protocol Planned Anesthetic: MAC and Per anesthesia choice Instructions Given to Patient: Patient given verbal instructions and voices comprehension and compliance. Copy sent electronically via My Chart, email, or mobile device. This is a virtual visit. It required patient-provider interaction for the medical decision making as documented above. SIGNATURE: Lavonne Florentino APRN.CNP PATIENT NAME: Mariela Orozco DATE: May 14, 2022 TIME: 9:49 AM PAGER/CONTACT #: documented in this encounter [facility] 05-05-2022 Miscellaneous Notes Attempted to contact patient to inform of PACC appointment needed to be competed prior to procedure with Dr. Trujillo in [place] on 05/16/2022. Went straight to voicemail. Left voicemail to call office back at [phone] Tried Emergency contact and was unsuccessful as number was no longer active. Lesly Colindres Manager Animation Patient no showed for Pacc appt on 04/29/22 and we've been trying to contact her to reschedule the appt. Patient phone is going straight to voicemail, she has not responded to any or [employer] msgs. If you are able to contact patient please have her call Pacc at [phone] to schedule an appt. documented in this encounter [facility] 04-29-2022 Miscellaneous Notes Hi, Scheduled for colonoscopy and endoscopy with Eddie Trujillo MD on 05/16/2022 at [facility]. Patient was scheduled for virtual PACC appt at 1430 today. Patient did not check in for visit. Called patient to see if they needed any assistance logging in. Patient states she would like to reschedule her procedure. She states she has number for rescheduling PACC visit. This message routed to PACC schedulers to contact patient to reschedule PACC appt. documented in this encounter [facility] 04-01-2022 Note HNO ID: [id number] Author: Keaton Hall PA-C Service: ? Author Type: Physician News Cameraman Type: Progress Notes Filed: 04/03/2022 11:45 AM Note Text: HISTORY AND PHYSICAL Mariela Orozco 1970 REFERRING PHYSICIAN: Gerber Meier MD CHIEF COMPLAINT: Consult (EGD and colonoscopy consult) HPI: The patient is a 52 year old female referred by primary care for endoscopy, due to multiple abdominal complaints. Patient is difficult historian. Notes upper abdominal and epigastric pain. Unsure of exact onset of symptoms, but states this has been much worse over the last few weeks. Notes a history of being treated for H. Pylori years ago, does not recall whether she had a follow-up test to confirm eradication. Symptoms are worsened with eating, somewhat improved with protonix and carafate. Pain ranges from mild aching to severe and sharp to where it almost doubles her over. Sometimes experiences hot flashes with eating. Notes increased gas and belching. She states she has been trying to watch her diet for months to try to be careful and avoid things that may worsen symptoms. States has been eating more fruit and vegetables. She had a prior cholecystectomy in 2015. Patient denies any change in bowel habits, weight changes, blood in stools, or black tarry stools. Denies family history of colon cancer in a first-degree relative. Has never had a screening colonoscopy. Patient's past medical history is significant for hypertension, anxiety, GERD, migraines, obesity, fatty liver. She follows with Dr. Meier in primary care for her chronic medical conditions. Patient denies chest pain, shortness of breath or recent hospitalizations. Denies problems with sedation in the past. PAST MEDICAL HISTORY Diagnosis Date Allergic rhinitis due to pollen Anemia Chlamydia 1989+ Essential hypertension, benign 03/22/2014 Fibroid Generalized anxiety disorder Anxiety, Generalized GERD (gastroesophageal reflux disease) 07/19/2010 Herpes simplex without mention of complication Meralgia paraesthetica 03/30/2012 Migraine, unspecified, with intractable migraine, so stated, without mention of status migrainosus Migraine Obesity, unspecified Severe anxiety with panic 01/25/2016 Sleep disorder 04/23/2015 PAST SURGICAL HISTORY Procedure Laterality Date [facility] (MISSED AB 1ST TRIMESTER) 06/10/2012 ESOPHAGOGASTRODUODENOSCOPY TRANSORAL DIAGNOSTIC 01/12/2013 EGD LAPS SURG CHOLECYSTECTOMY W/CHOLANGIOGRAPHY 08/27/15 failed IOC LAPS VAGINAL HYSTERECT > 250 GM RMVL TUBEAND/OVAR 01/18/15 LAVH, LSO, right salpingectomy LUNG PERFUSION + VENTILATION [facility] - See scanned documents Current Outpatient Medications Medication Sig bisoprolol-hydroCHLOROthiazide (ZIAC) 5-6.25 mg per tablet Take 1 tablet by mouth once daily. ondansetron orally disintegrating (ZOFRAN ODT) 4 mg disintegrating tablet Ondansetron Ondansetron Active 4 MG EVERY 8 HOURS NEEDED January 22, 2019 10:03pm 11-23-2019 [facility] ([id number]) sucralfate (CARAFATE) 1 gram tablet Take 1 tablet by mouth four times daily. pantoprazole DR (PROTONIX) 40 mg tablet Take 1 tablet by mouth twice daily. Take on empty stomach, 1/2 hr before meal. albuterol HFA (VENTOLIN HFA) 90 mcg/actuation inhaler Inhale 2 Puffs as instructed every 4 hours as needed. Potassium 99 mg tab Take by mouth. OTC albuterol HFA (PROVENTIL HFA, VENTOLIN HFA) 90 mcg/actuation inhaler Inhale 2 Puffs as instructed every 4 hours as needed. aluminum chloride (DRYSOL) 20 % external solution Apply to affected area daily at bedtime. docusate sodium (COLACE) 100 mg capsule Take 1 capsule by mouth twice daily as needed for Constipation. loratadine (CLARITIN) 10 mg tablet Take 1 tablet by mouth once daily. Estradiol (YUVAFEM) 10 mcg tab vaginal tablet Use 1 tablet vaginally once daily. Daily for 2 weeks, followed by 1 tablet intravaginally twice weekly. COMPOUNDED PRESCRIPTION ORTHOTICS CUSTOM PAIR FOR SHOES DX PLANTAR FASC Vitamin w/ Iron ( PLUS, CALCIUM CARB,) 27 mg iron- 1 mg tab Take 1 tablet by mouth once daily. fluticasone (FLONASE) 50 mcg/actuation nasal spray instill 1 spray into each nostril at bedtime citalopram (CELEXA) 40 mg tablet Take 1 tablet by mouth once daily. clonazePAM (KLONOPIN) 1 mg tablet Take 0.5-1 tablets by mouth twice daily as needed. zolpidem (AMBIEN) 10 mg tab Take 1 tablet by mouth at bedtime as needed for up to 30 days. FOR INSOMNIA No current facility-administered medications for this visit. ALLERGIES: Imitrex [Sumatriptan Succinate], Paxil [Paroxetine Hcl], Sea Food [Shellfish Derived], Zoloft [Sertraline Hcl], and Zyprexa [Olanzapine] PERSONAL HISTORY: Social History Tobacco Use Smoking status: Former Years: 8.00 Types: Cigarettes Smokeless tobacco: Never Tobacco comments: social Vaping Use Vaping Use: Former Substance Use Topics Alcohol use: Yes Com (more content not included)... [facility] 04-01-2022 History of Presen t illness Narrative HISTORY AND PHYSICAL Mariela Orozco 1970 REFERRING PHYSICIAN: Gerber Meier MD CHIEF COMPLAINT: Consult (EGD and colonoscopy consult) HPI: The patient is a 52 year old female referred by primary care for endoscopy, due to multiple abdominal complaints. Patient is difficult historian. Notes upper abdominal and epigastric pain. Unsure of exact onset of symptoms, but states this has been much worse over the last few weeks. Notes a history of being treated for H. Pylori years ago, does not recall whether she had a follow-up test to confirm eradication. Symptoms are worsened with eating, somewhat improved with protonix and carafate. Pain ranges from mild aching to severe and sharp to where it almost doubles her over. Sometimes experiences hot flashes with eating. Notes increased gas and belching. She states she has been trying to watch her diet for months to try to be careful and avoid things that may worsen symptoms. States has been eating more fruit and vegetables. She had a prior cholecystectomy in 2015. Patient denies any change in bowel habits, weight changes, blood in stools, or black tarry stools. Denies family history of colon cancer in a first-degree relative. Has never had a screening colonoscopy. Patient's past medical history is significant for hypertension, anxiety, GERD, migraines, obesity, fatty liver. She follows with Dr. Meier in primary care for her chronic medical conditions. Patient denies chest pain, shortness of breath or recent hospitalizations. Denies problems with sedation in the past. PAST MEDICAL HISTORY Diagnosis Date Allergic rhinitis due to pollen Anemia Chlamydia 1989+ Essential hypertension, benign 03/22/2014 Fibroid Generalized anxiety disorder Anxiety, Generalized GERD (gastroesophageal reflux disease) 07/19/2010 Herpes simplex without mention of complication Meralgia paraesthetica 03/30/2012 Migraine, unspecified, with intractable migraine, so stated, without mention of status migrainosus Migraine Obesity, unspecified Severe anxiety with panic 01/25/2016 Sleep disorder 04/23/2015 PAST SURGICAL HISTORY Procedure Laterality Date D&C (MISSED AB 1ST TRIMESTER) 06/10/2012 ESOPHAGOGASTRODUODENOSCOPY TRANSORAL DIAGNOSTIC 01/12/2013 EGD LAPS SURG CHOLECYSTECTOMY W/CHOLANGIOGRAPHY 08/27/15 failed IOC LAPS VAGINAL HYSTERECT > 250 GM RMVL TUBE&/OVAR 01/18/15 LAVH, LSO, right salpingectomy LUNG PERFUSION + VENTILATION [facility] - See scanned documents Current Outpatient Medications Medication Sig bisoprolol-hydroCHLOROthiazide (ZIAC) 5-6.25 mg per tablet Take 1 tablet by mouth once daily. ondansetron orally disintegrating (ZOFRAN ODT) 4 mg disintegrating tablet Ondansetron Ondansetron Active 4 MG EVERY 8 HOURS NEEDED January 22, 2019 10:03pm 01-22-2019 [facility] ([id number]) sucralfate (CARAFATE) 1 gram tablet Take 1 tablet by mouth four times daily. pantoprazole DR (PROTONIX) 40 mg tablet Take 1 tablet by mouth twice daily. Take on empty stomach, 1/2 hr before meal. albuterol HFA (VENTOLIN HFA) 90 mcg/actuation inhaler Inhale 2 Puffs as instructed every 4 hours as needed. Potassium 99 mg tab Take by mouth. OTC albuterol HFA (PROVENTIL HFA, VENTOLIN HFA) 90 mcg/actuation inhaler Inhale 2 Puffs as instructed every 4 hours as needed. aluminum chloride (DRYSOL) 20 % external solution Apply to affected area daily at bedtime. docusate sodium (COLACE) 100 mg capsule Take 1 capsule by mouth twice daily as needed for Constipation. loratadine (CLARITIN) 10 mg tablet Take 1 tablet by mouth once daily. Estradiol (YUVAFEM) 10 mcg tab vaginal tablet Use 1 tablet vaginally once daily. Daily for 2 weeks, followed by 1 tablet intravaginally twice weekly. COMPOUNDED PRESCRIPTION ORTHOTICS CUSTOM PAIR FOR SHOES DX PLANTAR FASC Vitamin w/ Iron ( PLUS, CALCIUM CARB,) 27 mg iron- 1 mg tab Take 1 tablet by mouth once daily. fluticasone (FLONASE) 50 mcg/actuation nasal spray instill 1 spray into each nostril at bedtime citalopram (CELEXA) 40 mg tablet Take 1 tablet by mouth once daily. clonazePAM (KLONOPIN) 1 mg tablet Take 0.5-1 tablets by mouth twice daily as needed. zolpidem (AMBIEN) 10 mg tab Take 1 tablet by mouth at bedtime as needed for up to 30 days. FOR INSOMNIA No current facility-administered medications for this visit. ALLERGIES: Imitrex [Sumatriptan Succinate], Paxil [Paroxetine Hcl], Sea Food [Shellfish Derived], Zoloft [Sertraline Hcl], and Zyprexa [Olanzapine] PERSONAL HISTORY: Social History Tobacco Use Smoking status: Former Years: 8.00 Types: Cigarettes Smokeless tobacco: Never Tobacco comments: social Vaping Use Vaping Use: Former Substance Use Topics Alcohol use: Yes Comment: social Drug use: No FAMILY HISTORY: FAMILY HISTORY Problem Relation Age of Onset Cancer Mother Hypertension Father Cancer Father prostate cancer DVT Father Alzheimer's Disease Paternal Grandmother other (fibroids) Sister 2 or 3 sisters Cancer Brother esophageal Diabetes Sister dm REVIEW OF SYMPTOMS: The review of systems data was entered by the nurse and reviewed by me Nursing Notes: Liz Rubio RN 04/01/2022 1:25 PM Signed REVIEW OF SYSTEMS: General: The patient NOTES fatigue, NOTES weight loss, denies weight gain, denies feeling hot, and NOTES feelings of cold. Eyes: The patient denies glaucoma, denies eye injury/surgery, wears glasses or contacts. Ear/Nose/Throat: The patient NOTES allergies, denies hayfever, denies ear infections, and denies bloody noses. Cardiovascular: The patient denies chest pain, denies heart disease, NOTES high blood pressure,denies cardiac stent, denies prior heart attack, denies irregular heart beat, denies high cholesterol, denies poor circulation, denies heart failure, other cardiac issues, denies claudication, denies cold feet, denies peripheral arterial stent. Respiratory: The patient denies tuberculosis, denies pneumonia, denies frequent cough, denies pulmonary embolism, denies shortness of breath, and denies coughing up blood. Gastrointestinal: The patient denies difficulty swallowing, NOTES acid reflux, NOTES ulcers, denies vomiting, denies jaundice/hepatitis, denies gallbladder problems, denies black or tarry stools, denies hemorrhoids, denies bleeding from rectum, denies diverticulitis, denies constipation, denies diarrhea, denies loss of stool control, and denies hernias. Kidney/Bladder: The patient denies kidney stones, denies urine infections, and denies bloody urine. Skin: The patient denies a history of skin cancer, denies bleeding/changing moles, and denies a history of skin rash. Neurologic: The patient denies a history of epilepsy/convulsions, denies headaches, denies head/spinal injuries, and denies stroke/TIA. Psychiatric: The patient denies psychiatric medications, NOTES depression, and denies voices, denies substance abuse. Endocrine: The patient denies thyroid disorders, denies diabetes, and NOTES hormonal problems. Hematologic: The patient denies a history of bruising, denies bleeding, and NOTES anemia, denies blood clots. Infections: The patient denies a history of measles and mumps, denies rheumatic fever, and denies sexually transmitted diseases. Musculoskeletal: The patient denies back pain/injury, NOTES back problems, denies sciatica, NOTES knee/foot trouble, denies arthritis, or denies gout. When was patient's last Mammogram screening? 12/26/2021 Last Colonoscopy: Unknown Lzi Rubio RN I have confirmed and edited as necessary, the PFSH and ROS obtained by others. Keaton Hall PA-C PHYSICAL EXAMINATION: General: The patient is 52 year old female, well nourished, well hydrated in no acute distress. The patient is oriented to time, place, and person. VITALS: Blood pressure 122/78, pulse 80, temperature 36.2 C (97.2 F), height 167.6 cm (5' 6 ), weight 135.2 kg (298 lb), last menstrual period 12/27/2014, SpO2 97 %. Body mass index is 48.1 kg/m . HEENT: Normal cephalic, ataumatic, pupils are equally round, sclera are anicteric, mucous membranes are moist, oropharynx is clear. Neck has no masses, asymmetry or lymphadenopathy. Respiratory: Clear to auscultation and percussion. Normal respiratory excursion and pattern. Cardiac: Examination is regular rate and rhythm. Normal S1/S2 Abdominal exam: Soft, nontender, with no palpable masses. No hepatosplenomegaly. No palpable hernias. Extremities: no clubbing, cyanosis or edema. No adenopathy. LABORATORY VALUES: As Noted RADIOLOGIC STUDIES: As Noted Assessment IMPRESSION: GERD and upper abdominal discomfort, belching. History of h pylori. Encounter for screening colonoscopy PLAN: I have reviewed my findings with the surgeon. Will plan for upper and lower endoscopy. We discussed the risks and benefits of the planned endoscopy. I have informed the patient that complications can occur including failure to complete the endoscopy and perforation. The patient had the opportunity to ask questions concerning the planned endoscopy. My staff has also explained the procedure to the patient in understandable terms and has given the patient printed material concerning the procedure. The patient freely consents to surgery. The patient was offered a surgery/procedure at a [facility] facility. I have counseled the patient regarding the risk of exposure to and/or potential harm posed by the COVID-19 virus with having a surgery/procedure at this time versus the risk of delaying the surgery/procedure. It is not possible to know either the risk of delaying the surgery or procedure or chance of getting an infection with perfect accuracy, but a joint decision was made between the patient and myself to proceed at this time with endoscopy. I plan to use Golytely bowel preparation We will plan for [facility]. Diagnoses: (R10.11, R10.12) Bilateral upper abdominal pain (primary encounter diagnosis) (R14.2) Belching (Z90.49) S/P cholecystectomy (K21.9) Gastroesophageal reflux disease, unspecified whether esophagitis present (Z12.11) Encounter for screening for malignant neoplasm of colon (Z86.19) History of Helicobacter pylori infection Consultation requested by Dr. Meier for an opinion regarding multiple abdominal complaints. My final recommendations will be communicated back to the requesting physician by way of shared Medical record or letter to requesting physician via US mail. Keaton Hall PA-C documented in this encounter [facility] 04-01-2022 Nurse Note REVIEW OF SYSTEMS: General: The patient NOTES fatigue, NOTES weight loss, denies weight gain, denies feeling hot, and NOTES feelings of cold. Eyes: The patient denies glaucoma, denies eye injury/surgery, wears glasses or contacts. Ear/Nose/Throat: The patient NOTES allergies, denies hayfever, denies ear infections, and denies bloody noses. Cardiovascular: The patient denies chest pain, denies heart disease, NOTES high blood pressure,denies cardiac stent, denies prior heart attack, denies irregular heart beat, denies high cholesterol, denies poor circulation, denies heart failure, other cardiac issues, denies claudication, denies cold feet, denies peripheral arterial stent. Respiratory: The patient denies tuberculosis, denies pneumonia, denies frequent cough, denies pulmonary embolism, denies shortness of breath, and denies coughing up blood. Gastrointestinal: The patient denies difficulty swallowing, NOTES acid reflux, NOTES ulcers, denies vomiting, denies jaundice/hepatitis, denies gallbladder problems, denies black or tarry stools, denies hemorrhoids, denies bleeding from rectum, denies diverticulitis, denies constipation, denies diarrhea, denies loss of stool control, and denies hernias. Kidney/Bladder: The patient denies kidney stones, denies urine infections, and denies bloody urine. Skin: The patient denies a history of skin cancer, denies bleeding/changing moles, and denies a history of skin rash. Neurologic: The patient denies a history of epilepsy/convulsions, denies headaches, denies head/spinal injuries, and denies stroke/TIA. Psychiatric: The patient denies psychiatric medications, NOTES depression, and denies voices, denies substance abuse. Endocrine: The patient denies thyroid disorders, denies diabetes, and NOTES hormonal problems. Hematologic: The patient denies a history of bruising, denies bleeding, and NOTES anemia, denies blood clots. Infections: The patient denies a history of measles and mumps, denies rheumatic fever, and denies sexually transmitted diseases. Musculoskeletal: The patient denies back pain/injury, NOTES back problems, denies sciatica, NOTES knee/foot trouble, denies arthritis, or denies gout. When was patient's last Mammogram screening? 12/26/2021 Last Colonoscopy: Unknown Liz Rubio RN documented in this encounter [facility] 03-25-2022 Influenza virus A and B RNA and SARS-CoV-2 (COVID-19) N gene panel DRAKE+probe (Resp) COVID 19 RESULT: SARS-CoV-2 (Agent of COVID-19) Not Detected by RT-PCR or equivalent method. This test was developed and its performance characteristics determined by [facility]. This test has been authorized by FDA under an Emergency Use Authorization (EUA). This test has been validated in accordance with the FDA's Guidance Document Policy for Diagnostics Testing in Laboratories Certified to Perform High Complexity Testing under CLIA prior to Emergency use Authorization for Coronavirus Disease 2019 during the Public Health Emergency issued on April 30, 2019. Test performed by [facility], [facility], [facility] [place] [address]. INFLUENZA A PCR: Negative for Influenza A by RT-PCR INFLUENZA B PCR: Negative for Influenza B by RT-PCR [facility] documented as of this encounter (statuses as of 09/02/2021) [facility]07-04-2016 History of Past illness Narrative* Problem Noted Date Resolved Date Acute cholecystitis with chronic cholecystitis 0 09/03/2015 01/25/2016 Contusion of knee 06/14/2015 01/25/2016 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 Intramural leiomyoma of uterus 01/17/2015 1 Generalized anxiety disorder 12/26/201407/2021 Endometrial thickening on ultra sound 11/27/2014 02/27/2015 Menorrhagia with regular cycle 11/27/2014 1 Genital warts 12/23/2011 05/26/2014 Knee MCL sprain 04/29/2011 05/26/2014 Tear of medial cartilage or meniscus of knee, cu rrent 04/15/2011 04/29/2011 Tear of left meniscus as current injury 03/20/19 12 04/29/2011 documented as of this encounter (statuses as of 12/31/2021) [facility] History of Past illness Narrative* Problem Noted Date Resolved Date Acute cholecystitis with chronic cholecystitis 0 09/03/2015 01/25/2016 Contusion of knee 06/14/2015 01/25/2016 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 Intramural leiomyoma of uterus 01/17/2015 1 Generalized anxiety disorder 12/26/201407/2021 Endometrial thickening on ultra sound 11/27/2014 02/27/2015 Menorrhagia with regular cycle 11/27/2014 1 Genital warts 12/23/2011 05/26/2014 Knee MCL sprain 04/29/2011 05/26/2014 Tear of medial cartilage or meniscus of knee, cu rrent 04/15/2011 04/29/2011 Tear of left meniscus as current injury 03/20/19 12 04/29/2011 documented as of this encounter (statuses as of 03/03/2022) [facility] History of Past illness Narrative* Problem Noted Date Resolved Date Acute cholecystitis with chronic cholecystitis 0 09/03/2015 01/25/2016 Contusion of knee 06/14/2015 01/25/2016 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 Intramural leiomyoma of uterus 01/17/2015 1 Generalized anxiety disorder 12/26/201407/2021 Endometrial thickening on ultra sound 11/27/2014 02/27/2015 Menorrhagia with regular cycle 11/27/2014 1 Genital warts 12/23/2011 05/26/2014 Knee MCL sprain 04/29/2011 05/26/2014 Tear of medial cartilage or meniscus of knee, cu rrent 04/15/2011 04/29/2011 Tear of left meniscus as current injury 03/20/19 12 04/29/2011 documented as of this encounter (statuses as of 03/14/2022) [facility] History of Past illness Narrative* Problem Noted Date Resolved Date Acute cholecystitis with chronic cholecystitis 0 09/03/2015 01/25/2016 Contusion of knee 06/14/2015 01/25/2016 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 Intramural leiomyoma of uterus 01/17/2015 1 Generalized anxiety disorder 12/26/201407/2021 Endometrial thickening on ultra sound 11/27/2014 02/27/2015 Menorrhagia with regular cycle 11/27/2014 1 Genital warts 12/23/2011 05/26/2014 Knee MCL sprain 04/29/2011 05/26/2014 Tear of medial cartilage or meniscus of knee, cu rrent 04/15/2011 04/29/2011 Tear of left meniscus as current injury 03/20/19 12 04/29/2011 documented as of this encounter (statuses as of 03/14/2022) [facility] History of Past illness Narrative* Problem Noted Date Resolved Date Acute cholecystitis with chronic cholecystitis 0 09/03/2015 01/25/2016 Contusion of knee 06/14/2015 01/25/2016 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 Intramural leiomyoma of uterus 01/17/2015 1 Generalized anxiety disorder 12/26/201407/2021 Endometrial thickening on ultra sound 11/27/2014 02/27/2015 Menorrhagia with regular cycle 11/27/2014 1 Genital warts 12/23/2011 05/26/2014 Knee MCL sprain 04/29/2011 05/26/2014 Tear of medial cartilage or meniscus of knee, cu rrent 04/15/2011 04/29/2011 Tear of left meniscus as current injury 03/20/19 12 04/29/2011 documented as of this encounter (statuses as of 03/15/2022) [facility] History of Past illness Narrative* Problem Noted Date Resolved Date Acute cholecystitis with chronic cholecystitis 0 09/03/2015 01/25/2016 Contusion of knee 06/14/2015 01/25/2016 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 Intramural leiomyoma of uterus 01/17/2015 1 Generalized anxiety disorder 12/26/201407/2021 Endometrial thickening on ultra sound 11/27/2014 02/27/2015 Menorrhagia with regular cycle 11/27/2014 1 Genital warts 12/23/2011 05/26/2014 Knee MCL sprain 04/29/2011 05/26/2014 Tear of medial cartilage or meniscus of knee, cu rrent 04/15/2011 04/29/2011 Tear of left meniscus as current injury 03/20/19 12 04/29/2011 documented as of this encounter (statuses as of 03/18/2022) [facility] History of Past illness Narrative* Problem Noted Date Resolved Date Acute cholecystitis with chronic cholecystitis 0 09/03/2015 01/25/2016 Contusion of knee 06/14/2015 01/25/2016 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 Intramural leiomyoma of uterus 01/17/2015 1 Generalized anxiety disorder 12/26/201407/2021 Endometrial thickening on ultra sound 11/27/2014 02/27/2015 Menorrhagia with regular cycle 11/27/2014 1 Genital warts 12/23/2011 05/26/2014 Knee MCL sprain 04/29/2011 05/26/2014 Tear of medial cartilage or meniscus of knee, cu rrent 04/15/2011 04/29/2011 Tear of left meniscus as current injury 03/20/19 12 04/29/2011 documented as of this encounter (statuses as of 2022) [facility] History of Past illness Narrative* Problem Noted Date Resolved Date Acute cholecystitis with chronic cholecystitis 0 09/03/2015 01/25/2016 Contusion of knee 06/14/2015 01/25/2016 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 Intramural leiomyoma of uterus 01/17/2015 1 Generalized anxiety disorder 12/26/201407/2021 Endometrial thickening on ultra sound 11/27/2014 02/27/2015 Menorrhagia with regular cycle 11/27/2014 1 Genital warts 12/23/2011 05/26/2014 Knee MCL sprain 04/29/2011 05/26/2014 Tear of medial cartilage or meniscus of knee, cu rrent 04/15/2011 04/29/2011 Tear of left meniscus as current injury 03/20/19 12 04/29/2011 documented as of this encounter (statuses as of 03/26/2022) [facility] History of Past illness Narrative* Problem Noted Date Resolved Date Acute cholecystitis with chronic cholecystitis 0 09/03/2015 01/25/2016 Contusion of knee 06/14/2015 01/25/2016 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 Intramural leiomyoma of uterus 01/17/2015 1 Generalized anxiety disorder 12/26/201407/2021 Endometrial thickening on ultra sound 11/27/2014 02/27/2015 Menorrhagia with regular cycle 11/27/2014 1 Genital warts 12/23/2011 05/26/2014 Knee MCL sprain 04/29/2011 05/26/2014 Tear of medial cartilage or meniscus of knee, cu rrent 04/15/2011 04/29/2011 Tear of left meniscus as current injury 03/20/1904/29/2011 documented as of this encounter (statuses as of 04/03/2022) [facility] History of Past illness Narrative* Problem Noted Date Resolved Date Acute cholecystitis with chronic cholecystitis 0 09/03/2015 01/25/2016 Contusion of knee 06/14/2015 01/25/2016 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 Intramural leiomyoma of uterus 01/17/2015 1 Generalized anxiety disorder 12/26/201407/2021 Endometrial thickening on ultra sound 11/27/2014 02/27/2015 Menorrhagia with regular cycle 11/27/2014 1 Genital warts 12/23/2011 05/26/2014 Knee MCL sprain 04/29/2011 05/26/2014 Tear of medial cartilage or meniscus of knee, cu rrent 04/15/2011 04/29/2011 Tear of left meniscus as current injury 03/20/1904/29/2011 documented as of this encounter (statuses as of 05/05/2022) [facility] History of Past illness Narrative* Problem Noted Date Resolved Date Acute cholecystitis with chronic cholecystitis 0 09/03/2015 01/25/2016 Contusion of knee 06/14/2015 01/25/2016 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 Intramural leiomyoma of uterus 01/17/2015 1 Generalized anxiety disorder 12/26/201407/2021 Endometrial thickening on ultra sound 11/27/2014 02/27/2015 Menorrhagia with regular cycle 11/27/2014 1 Genital warts 12/23/2011 05/26/2014 Knee MCL sprain 04/29/2011 05/26/2014 Tear of medial cartilage or meniscus of knee, cu rrent 04/15/2011 04/29/2011 Tear of left meniscus as current injury 03/20/1904/29/2011 documented as of this encounter (statuses as of 05/14/2022) [facility] History of Past illness Narrative* Problem Noted Date Resolved Date Acute cholecystitis with chronic cholecystitis 0 09/03/2015 01/25/2016 Contusion of knee 06/14/2015 01/25/2016 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 Intramural leiomyoma of uterus 01/17/2015 1 Generalized anxiety disorder 12/26/201407/2021 Endometrial thickening on ultra sound 11/27/2014 02/27/2015 Menorrhagia with regular cycle 11/27/2014 1 Genital warts 12/23/2011 05/26/2014 Knee MCL sprain 04/29/2011 05/26/2014 Tear of medial cartilage or meniscus of knee, cu rrent 04/15/2011 04/29/2011 Tear of left meniscus as current injury 03/20/19 12 04/29/2011 documented as of this encounter (statuses as of 05/29/2022) [facility] History of Past illness Narrative* Problem Noted Date Resolved Date Acute cholecystitis with chronic cholecystitis 0 09/03/2015 01/25/2016 Contusion of knee 06/14/2015 01/25/2016 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 Intramural leiomyoma of uterus 01/17/2015 1 Generalized anxiety disorder 12/26/201407/2021 Endometrial thickening on ultra sound 11/27/2014 02/27/2015 Menorrhagia with regular cycle 11/27/2014 1 Genital warts 12/23/2011 05/26/2014 Knee MCL sprain 04/29/2011 05/26/2014 Tear of medial cartilage or meniscus of knee, cu rrent 04/15/2011 04/29/2011 Tear of left meniscus as current injury 03/20/19 12 04/29/2011 documented as of this encounter (statuses as of 06/13/2022) [facility] History of Past illness Narrative* Problem Noted Date Resolved Date Acute cholecystitis with chronic cholecystitis 0 09/03/2015 01/25/2016 Contusion of knee 06/14/2015 01/25/2016 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 Intramural leiomyoma of uterus 01/17/2015 1 Generalized anxiety disorder 12/26/201407/2021 Endometrial thickening on ultra sound 11/27/2014 02/27/2015 Menorrhagia with regular cycle 11/27/2014 1 Genital warts 12/23/2011 05/26/2014 Knee MCL sprain 04/29/2011 05/26/2014 Tear of medial cartilage or meniscus of knee, cu rrent 04/15/2011 04/29/2011 Tear of left meniscus as current injury 03/20/19 12 04/29/2011 documented as of this encounter (statuses as of 07/01/2022) [facility] History of Past illness Narrative* Problem Noted Date Resolved Date Acute cholecystitis with chronic cholecystitis 0 09/03/2015 01/25/2016 Contusion of knee 06/14/2015 01/25/2016 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 Intramural leiomyoma of uterus 01/17/2015 1 Generalized anxiety disorder 12/26/201407/2021 Endometrial thickening on ultra sound 11/27/2014 02/27/2015 Menorrhagia with regular cycle 11/27/2014 1 Genital warts 12/23/2011 05/26/2014 Knee MCL sprain 04/29/2011 05/26/2014 Tear of medial cartilage or meniscus of knee, cu rrent 04/15/2011 04/29/2011 Tear of left meniscus as current injury 03/20/19 12 04/29/2011 documented as of this encounter (statuses as of 08/20/2022) [facility] History of Past illness Narrative* Problem Noted Date Diagnosed Date Resolved Date Acute cholecystitis with chr onic cholecystitis 09/03/2015 01/25/2016 Contusion of knee 06/14/2015 01/25/2016 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 Intramural leiomyoma of uterus 01/17/2015 02/27/2015 Generalized anxiety disorder 12/26/2014 03/07/2021 Endometrial thickening on ultra sound 11/27/2014 02/27/2015 Menorrhagia with regular cycle 11/27/2014 02/27/2015 Genital warts 12/23/2011 05/26/2014 Knee MCL sprain 04/29/2011 05/26/2014 Tear of medial cartilage or meniscus of knee, current 04/15/2011 04/29/2011 Tear of left meniscus as current injury 03/20/2011 04/29/2011 documented as of this encounter (statuses as of 11/15/2022) [facility]2016 History of Past illness Narrative* Problem Noted Date Diagnosed Date Resolved Date Acute cholecystitis with chr onic cholecystitis 09/03/2015 01/25/2016 Contusion of knee 06/14/2015 01/25/2016 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 Intramural leiomyoma of uterus 01/17/2015 02/27/2015 Generalized anxiety disorder 12/26/2014 03/07/2021 Endometrial thickening on ultra sound 11/27/2014 02/27/2015 Menorrhagia with regular cycle 11/27/2014 02/27/2015 Genital warts 12/23/2011 05/26/2014 Knee MCL sprain 04/29/2011 05/26/2014 Tear of medial cartilage or meniscus of knee, current 04/15/2011 04/29/2011 Tear of left meniscus as current injury 03/20/2011 04/29/2011 documented as of this encounter (statuses as of 11/16/2022) [facility] History of Past illness Narrative* Problem Noted Date Diagnosed Date Resolved Date Acute cholecystitis with chr onic cholecystitis 09/03/2015 01/25/2016 Contusion of knee 06/14/2015 01/25/2016 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 Intramural leiomyoma of uterus 01/17/2015 02/27/2015 Generalized anxiety disorder 12/26/2014 03/07/2021 Endometrial thickening on ultra sound 11/27/2014 02/27/2015 Menorrhagia with regular cycle 11/27/2014 02/27/2015 Genital warts 12/23/2011 05/26/2014 Knee MCL sprain 04/29/2011 05/26/2014 Tear of medial cartilage or meniscus of knee, current 04/15/2011 04/29/2011 Tear of left meniscus as current injury 03/20/2011 04/29/2011 documented as of this encounter (statuses as of 11/25/2022) [facility] History of Past illness Narrative* Problem Noted Date Diagnosed Date Resolved Date Acute cholecystitis with chr onic cholecystitis 09/03/2015 01/25/2016 Contusion of knee 06/14/2015 01/25/2016 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 Intramural leiomyoma of uterus 01/17/2015 02/27/2015 Generalized anxiety disorder 12/26/2014 03/07/2021 Endometrial thickening on ultra sound 11/27/2014 02/27/2015 Menorrhagia with regular cycle 11/27/2014 02/27/2015 Genital warts 12/23/2011 05/26/2014 Knee MCL sprain 04/29/2011 05/26/2014 Tear of medial cartilage or meniscus of knee, current 04/15/2011 04/29/2011 Tear of left meniscus as current injury 03/20/2011 04/29/2011 documented as of this encounter (statuses as of 01/04/2023) [facility] History of Past illness Narrative* Problem Noted Date Diagnosed Date Resolved Date Acute cholecystitis with chr onic cholecystitis 09/03/2015 01/25/2016 Contusion of knee 06/14/2015 01/25/2016 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 Intramural leiomyoma of uterus 01/17/2015 02/27/2015 Generalized anxiety disorder 12/26/2014 03/07/2021 Endometrial thickening on ultra sound 11/27/2014 02/27/2015 Menorrhagia with regular cycle 11/27/2014 02/27/2015 Genital warts 12/23/2011 05/26/2014 Knee MCL sprain 04/29/2011 05/26/2014 Tear of medial cartilage or meniscus of knee, current 04/15/2011 04/29/2011 Tear of left meniscus as current injury 03/20/2011 04/29/2011 documented as of this encounter (statuses as of 01/04/2023) [facility] History of Past illness Narrative* Problem Noted Date Diagnosed Date Resolved Date Acute cholecystitis with chr onic cholecystitis 09/03/2015 01/25/2016 Contusion of knee 06/14/2015 01/25/2016 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 Intramural leiomyoma of uterus 01/17/2015 02/27/2015 Generalized anxiety disorder 12/26/2014 03/07/2021 Endometrial thickening on ultra sound 11/27/2014 02/27/2015 Menorrhagia with regular cycle 11/27/2014 02/27/2015 Genital warts 12/23/2011 05/26/2014 Knee MCL sprain 04/29/2011 05/26/2014 Tear of medial cartilage or meniscus of knee, current 04/15/2011 04/29/2011 Tear of left meniscus as current injury 03/20/2011 04/29/2011 documented as of this encounter (statuses as of 02/09/2023) [facility] History of Past illness Narrative* Problem Noted Date Diagnosed Date Resolved Date Acute cholecystitis with chr onic cholecystitis 09/03/2015 01/25/2016 Contusion of knee 06/14/2015 01/25/2016 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 Intramural leiomyoma of uterus 01/17/2015 02/27/2015 Generalized anxiety disorder 12/26/2014 03/07/2021 Endometrial thickening on ultra sound 11/27/2014 02/27/2015 Menorrhagia with regular cycle 11/27/2014 02/27/2015 Genital warts 12/23/2011 05/26/2014 Knee MCL sprain 04/29/2011 05/26/2014 Tear of medial cartilage or meniscus of knee, current 04/15/2011 04/29/2011 Tear of left meniscus as current injury 03/20/2011 04/29/2011 documented as of this encounter (statuses as of 04/13/2023) [facility] Diagnosis Encounter for screening mammogram for breast cancer [facility] encounter [facility]* Diagnosis Viral bronchitis- Primary Acute bronchitis Viral URI with cough Acute upper respiratory infections of unspecified site [facility] this encounter [facility]* Diagnosis Gastritis without bleeding, unspecified chronicity, unspecified gastritis type- Primary GERD without esophagitis Esophageal reflux Severe anxiety with panic Epigastric pain Abdominal pain, epigastric Lumbar pain Lumbago Elevated liver enzymes Other nonspecific abnormal serum enzyme levels documented in this encounter [facility]* Diagnosis Essential hypertension, benign documented in this encounter [facility]* Diagnosis Elevated liver enzymes- Primary Other nonspecific abnormal serum enzyme levels documented [facility] this encounter [facility]* Diagnosis Viral upper respiratory tract infection- Primary Acute upper respiratory infections of unspecified site Gastritis without bleeding, unspecified chronicity, unspecified gastritis type Elevated liver enzymes Other nonspecific abnormal serum enzyme levels documented in this encounter [facility] note* Diagnosis Bilateral upper abdominal pain- Primary Abdominal pain, right upper quadrant Belching Flatulence, eructation, and gas pain S/P cholecystectomy Other acquired absence of organ Gastroesophageal reflux disease, unspecified whether esophagitis present Encounter for screening for malignant neoplasm of colon Special screening for malignant neoplasms, colon History of Helicobacter pylori infection Personal history of other infectious and parasitic disease documented in this encounter [facility] note* Diagnosis Pre-op evaluation- Primary Preoperative examination, unspecified JES (obstructive sleep apnea) Obstructive sleep apnea (adult) (pediatric) Essential hypertension, benign Gastroesophageal reflux disease, unspecified whether esophagitis present Morbid obesity due to excess calories (HCC) documented in this encounter [facility] note* Diagnosis Bilateral upper abdominal discomfort- Primary Abdominal pain, right upper quadrant Other gastritis without bleeding Hyperplastic rectal polyp Anal and rectal polyp documented in this encounter [facility] note* Diagnosis Bilateral upper abdominal pain- Primary Abdominal pain, right upper quadrant Other gastritis without bleeding documented in this encounter [facility] note* Diagnosis Bilateral upper abdominal pain- Primary Abdominal pain, right upper quadrant Other gastritis without bleeding documented in this encounter [facility] note* Diagnosis Epistaxis- Primary documented in this encounter [facility] note* Diagnosis Essential hypertension, benign documented in this encounter [facility] note* Diagnosis Encounter for screening mammogram for breast cancer documented in this encounter [facility] note* Diagnosis Gastritis without bleeding, unspecified chronicity, unspecified gastritis type Elevated liver enzymes Other nonspecific abnormal serum enzyme levels documented in this encounter [facility] note* Diagnosis Encounter for screening mammogram for breast cancer documented in this encounter [facility] note* Diagnosis Gastritis without bleeding, unspecified chronicity, unspecified gastritis type GERD without esophagitis Esophageal reflux Epigastric pain Abdominal pain, epigastric documented in this encounter [facility] for referral (narrative)* Diagnostic Procedure Only (Routine) - Pending Review Specialty Diagnoses / Procedures Referred By Obed jensen Referred To Contact [facility] Diagnoses Encounter for screening mammogram for breast cancer Procedures ANITA SCREENING SCREENING MAMMOGRAPHY BI 2-VIEW BREAST INC Gerber Hsu MD [address] [place] [address] [facility] [address] [place] [address] Referral ID Status Reason Start Date Expiration Date Visits Requested Visits Authorized [id number] Pending Review Auto-Generat ed Referral 08/28/2021 09/27/2022 1 1 T [facility] for referral (narrative)* Diagnostic Procedure Only (Routine) - Closed Specialty Diagnoses / Procedures Referred By Obed t Referred To Contact [facility] Diagnoses Encounter for screening mammogram for breast cancer Procedures ANITA SCREENING SCREENING MAMMOGRAPHY BI 2-VIEW BREAST INC Gerber Hsu MD [address] [place] [address] [facility] [address] [place] [address] Referral ID Status Reason Start Date Expiration Date V isits Requested Visits Authorized [id number] Closed Auto-Generate d Referral 08/28/2021 09/27/2022 1 1 T [facility] for referral (narrative)* Diagnostic Procedure Only (Routine) - Closed Specialty Diagnoses / Procedures Referred By Obed jensen Referred To Contact [facility] Diagnoses Gastritis without bleeding, unspecified chronicity, unspecified gastritis type Elevated liver enzymes Procedures US ABD RT UPPER QUADRANT US ABDOMINAL REAL TIME W/IMAGE LIMITED Gerber Meier MD [address] [place] [address] [facility] Referral ID Status Reason Start Date Expiration Date V isits Requested Visits Authorized [id number] Closed Auto-Generate d Referral 03/14/2022 04/13/[address] [facility] for referral (narrative)* Diagnostic Procedure Only (Routine) - Pending Review Specialty Diagnoses / Procedures Referred By Obed jensen Referred To Contact [facility] Diagnoses Encounter for screening mammogram for breast cancer Procedures ANITA SCREENING SCREENING MAMMOGRAPHY BI 2-VIEW BREAST INC Gerber Hsu MD [address] [place] [address] [facility] [address] [place] [address] Referral ID Status Reason Start Date Expiration Date Visits Requested Visits Authorized [id number] Pending Review Auto-Generat ed Referral 02/04/2023 03/05/2024 1 1 [facility] Diagnostic Procedure Only (Routine) - Closed Specialty Diagnoses / Procedures Referred By Kelsieac t Referred To Contact [facility] Diagnoses Encounter for screening mammogram for breast cancer Procedures ANITA SCREENING SCREENING MAMMOGRAPHY BI 2-VIEW BREAST INC CAD Gerber Meier MD [address] [place] [address] [facility] [address] [place] [address] Referral ID Status Reason Start Date Expiration Date V isits Requested Visits Authorized [id number] Closed Auto-Generate d Referral 08/28/2021 09/27/2022 1 1 [facility] Reason for Referral Specialty Diagnoses / Procedures Referred By Obed t Referred To Contact General Surgery Diagnoses Gastritis without bleeding, unspecified chronicity, unspecified gastritis type GERD without esophagitis Procedures CONSULT TO GENERAL SURGERY OFFICE/OUTPATIENT [facility] 60-74 MINUTES Gerber Meier MD [address] [place] [address] Referral ID Status Reason Start Date Expiration Date Visits Requested Visits Authorized [id number] Authorized PCP Requested Referral 03/14/2022 03/14/2023 1 1 Specialty Diagnoses / Procedures Referred By Obed t Referred To Contact [facility] Diagnoses Gastritis without bleeding, unspecified chronicity, unspecified gastritis type Elevated liver enzymes Procedures US ABD RT UPPER QUADRANT US ABDOMINAL REAL TIME W/IMAGE LIMITED Gerber Meier MD [address] [place] [address] [facility] Referral ID Status Reason Start Date Expiration Date Visits Requested Visits Authorized [id number] Pending Review Auto-Generat ed Referral 03/14/2022 04/13/2023 1 1 Specialty Diagnoses / Procedures Referred By Obed t Referred To Contact Gastroenterology Diagnoses Bilateral upper abdominal pain Other gastritis without bleeding Procedures CONSULT TO GASTROENTEROLOGY Keaton Hall PA-C [address] [place] [address] Referral ID Status Reason Start Date Expiration Date Visits Requested Visits Authorized [id number] Ref Not Required PCP Requested Referral 06/30/2022 06/30/2023 1 1 Specialty Diagnoses / Procedures Referred By Contac t Referred To Contact Gastroenterology Diagnoses Bilateral upper abdominal pain Other gastritis without bleeding Procedures CONSULT TO GASTROENTEROLOGY OFFICE/OUTPATIENT [facility] 60-74 MINUTES Gerber Meier MD [address] [place] [address] Referral ID Status Reason Start Date Expiration Date Visits Requested Visits Authorized [id number] Authorized PCP Requested Referral 08/13/2022 08/13/2023 1 1 Specialty Diagnoses / Procedures Referred By Contac t Referred To Contact Ent - Otolaryngology Diagnoses Epistaxis Procedures CONSULT TO ENT OFFICE/OUTPATIENT [facility] 60-74 MINUTES Ed Thomason MD [address] [place] [address] Referral ID Status Reason Start Date Expiration Date Visits Requested Visits Authorized [id number] Authorized PCP Requested Referral 11/15/2022 11/15/2023 1 1 Summary Purpose Family History No Family History Records Found Advance Directives No Advanced Directives Records Found Additional Source Comments Source Comments (unrecognize d section and content) In the event this informatio n is protected by the Federal Confidentiality of Alcohol and Drug Abuse Patient Records regulations: The Federal rules restrict any use of the information to criminally investigate or prosecute any alcohol or drug abuse patient.[facility] the event this information is protected by the Federal Confidentiality of Alcohol and Drug Abuse Patient Records regulations: The Federal rules restrict any use of the information to criminally investigate or prosecute any alcohol or drug abuse patient.[facility] the event this information is protected by the Federal Confidentiality of Alcohol and Drug Abuse Patient Records regulations: The Federal rules restrict any use of the information to criminally investigate or prosecute any alcohol or drug abuse patient.[facility] the event this information is protected by the Federal Confidentiality of Alcohol and Drug Abuse Patient Records regulations: The Federal rules restrict any use of the information to criminally investigate or prosecute any alcohol or drug abuse patient.[facility] the event this information is protected by the Federal Confidentiality of Alcohol and Drug Abuse Patient Records regulations: The Federal rules restrict any use of the information to criminally investigate or prosecute any alcohol or drug abuse patient.[facility] the event this information is protected by the Federal Confidentiality of Alcohol and Drug Abuse Patient Records regulations: The Federal rules restrict any use of the information to criminally investigate or prosecute any alcohol or drug abuse patient.[facility] the event this information is protected by the Federal Confidentiality of Alcohol and Drug Abuse Patient Records regulations: The Federal rules restrict any use of the information to criminally investigate or prosecute any alcohol or drug abuse patient.[facility] the event this information is protected by the Federal Confidentiality of Alcohol and Drug Abuse Patient Records regulations: The Federal rules restrict any use of the information to criminally investigate or prosecute any alcohol or drug abuse patient.[facility] the event this information is protected by the Federal Confidentiality of Alcohol and Drug Abuse Patient Records regulations: The Federal rules restrict any use of the information to criminally investigate or prosecute any alcohol or drug abuse patient.[facility] the event this information is protected by the Federal Confidentiality of Alcohol and Drug Abuse Patient Records regulations: The Federal rules restrict any use of the information to criminally investigate or prosecute any alcohol or drug abuse patient.[facility] the event this information is protected by the Federal Confidentiality of Alcohol and Drug Abuse Patient Records regulations: The Federal rules restrict any use of the information to criminally investigate or prosecute any alcohol or drug abuse patient.[facility] the event this information is protected by the Federal Confidentiality of Alcohol and Drug Abuse Patient Records regulations: The Federal rules restrict any use of the information to criminally investigate or prosecute any alcohol or drug abuse patient.[facility] the event this information is protected by the Federal Confidentiality of Alcohol and Drug Abuse Patient Records regulations: The Federal rules restrict any use of the information to criminally investigate or prosecute any alcohol or drug abuse patient.[facility] the event this information is protected by the Federal Confidentiality of Alcohol and Drug Abuse Patient Records regulations: The Federal rules restrict any use of the information to criminally investigate or prosecute any alcohol or drug abuse patient.[facility] the event this information is protected by the Federal Confidentiality of Alcohol and Drug Abuse Patient Records regulations: The Federal rules restrict any use of the information to criminally investigate or prosecute any alcohol or drug abuse patient.[facility] the event this information is protected by the Federal Confidentiality of Alcohol and Drug Abuse Patient Records regulations: The Federal rules restrict any use of the information to criminally investigate or prosecute any alcohol or drug abuse patient.[facility] the event this information is protected by the Federal Confidentiality of Alcohol and Drug Abuse Patient Records regulations: The Federal rules restrict any use of the information to criminally investigate or prosecute any alcohol or drug abuse patient.[facility] the event this information is protected by the Federal Confidentiality of Alcohol and Drug Abuse Patient Records regulations: The Federal rules restrict any use of the information to criminally investigate or prosecute any alcohol or drug abuse patient.[facility] the event this information is protected by the Federal Confidentiality of Alcohol and Drug Abuse Patient Records regulations: The Federal rules restrict any use of the information to criminally investigate or prosecute any alcohol or drug abuse patient.[facility] the event this information is protected by the Federal Confidentiality of Alcohol and Drug Abuse Patient Records regulations: The Federal rules restrict any use of the information to criminally investigate or prosecute any alcohol or drug abuse patient.[facility] the event this information is protected by the Federal Confidentiality of Alcohol and Drug Abuse Patient Records regulations: The Federal rules restrict any use of the information to criminally investigate or prosecute any alcohol or drug abuse patient.[facility] the event this information is protected by the [facility] Confidentiality of Alcohol and Drug Abuse Patient Records regulations: The Federal rules restrict any use of the information to criminally investigate or prosecute any alcohol or drug abuse patient.[facility] the event this information is protected by the Federal Confidentiality of Alcohol and Drug Abuse Patient Records regulations: The Federal rules restrict any use of the information to criminally investigate or prosecute any alcohol or drug abuse patient.[facility] Care Teams (unrecognized sec tion and content) Verifying Specialist Relationship Specialty Start Date End Date Gerber Meier MD [address], [place] [id number] PCP - General Family Medicine 03/07/21 Verifying Specialist Relationship Specialty Start Date End Date Gerber Meier MD [address] [place], [place] [id number] PCP - General Family Medicine 03/07/21 Verifying Specialist Relationship Specialty Start Date End Date Gerber Meier MD [address] [place], [place] [id number] PCP - General Family Medicine 03/07/21 Verifying Specialist Relationship Specialty Start Date End Date Gerber Meier MD [address] [place] [address] PCP - General Family Medicine 03/07/21 Verifying Specialist Relationship Specialty Start Date End Date Gerber Meier MD [address] [facility] [place] [address] PCP - General Family Medicine 03/07/21 Verifying Specialist Relationship Specialty Start Date End Date Gerber Meier MD [address] [facility] [place] [place] [address] PCP - General Family Medicine 03/07/21 Verifying Specialist Relationship Specialty Start Date End Date Gerber Meier MD [address] [facility] [place] [place] [address] PCP - General Family Medicine 03/07/21 Verifying Specialist Relationship Specialty Start Date End Date Gerber Meier MD [address] [facility] [place] [address] PCP - General Family Medicine 03/07/21 Verifying Specialist Relationship Specialty Start Date End Date Gerber Meier MD [address] [facility] [place] [place] [address] PCP - General Family Medicine 03/07/21 Verifying Specialist Relationship Specialty Start Date End Date Gerber Meier MD [address] [facility] [place] [place] [address] PCP - General Family Medicine 03/07/21 Verifying Specialist Relationship Specialty Start Date End Date Gerber Meier MD [address] [facility] [place] [address] PCP - General Family Medicine 03/07/21 Verifying Specialist Relationship Specialty Start Date End Date Gerber Meier MD [address] [facility] [place] [place] [address] PCP - General Family Medicine 03/07/21 Verifying Specialist Relationship Specialty Start Date End Date Gerber Meier MD [address] [place], [place] [id number] PCP - General Family Medicine 03/07/21 Verifying Specialist Relationship Specialty Start Date End Date Gerber Meier MD [address] [place], [place] [id number] PCP - General Family Medicine 03/07/21 Verifying Specialist Relationship Specialty Start Date End Date Gerber Meier MD [address] [place] [address] PCP - General Family Medicine 03/07/21 Verifying Specialist Relationship Specialty Start Date End Date Gerber Meier MD [address] [place] [address] PCP - General Family Medicine 03/07/21 Verifying Specialist Relationship Specialty Start Date End Date Gerber Meier MD [address] [place] [address] PCP - General Family Medicine 03/07/21 Verifying Specialist Relationship Specialty Start Date End Date Gerber Meier MD [address] [place] [address] PCP - General Family Medicine 03/07/21 Verifying Specialist Relationship Specialty Start Date End Date Gerber Meier MD [address], [place] [address] PCP - General Family Medicine 03/07/21 Verifying Specialist Relationship Specialty Start Date End Date Gerber Meier MD [address] [place], [place] [id number] PCP - General Family Medicine 03/07/21 Reason for Visit (unrecogniz ed section and content) Reason Comments FYI-No Action Needed Reason Comments ER F/U Reason Onset Date Comments Refill Request 03/15/2022 Reason Comments Results Reason Comments Patient Update Reason Comments Acute Visit Started a few days a go with runny nose, sore throat, chills, fever 101, cough, weakness, wheezing Reason Comments Consult EGD and colonoscopy consult Specialty Diagnoses / Procedures Referred By Obed t Referred To Contact General Surgery Diagnoses Gastritis without bleeding, unspecified chronicity, unspecified gastritis type GERD without esophagitis Procedures CONSULT TO GENERAL SURGERY OFFICE/OUTPATIENT [facility] 60-74 MINUTES Gerber Meier MD [address] [place] [address] Referral ID Status Reason Start Date Expiration Date V isits Requested Visits Authorized [id number] Closed PCP Requested Referral 03/14/2022 03/14/2023 1 1 Reason Comments Appointment Pacc Appt Reason Comments Anesthesia Consult Reason Comments Follow Up Reason Comments No Show Reason Comments Referral Information Reason Comments Patient Question Reason Comments Nose Problem Blood clots in nose, won't stop bleeding, FOLEY started last night Reason Onset Date Comments Refill Request 11/24/2022 Reason Comments Radiology US Specialty Diagnoses / Procedures Referred By Obed t Referred To Contact [facility] IMAGING Diagnoses Gastritis without bleeding, unspecified chronicity, unspecified gastritis type Elevated liver enzymes Procedures US ABD RT UPPER QUADRANT US ABDOMINAL REAL TIME W/IMAGE LIMITED Gerber Meier MD [address] [place] [address] [place] [address] Referral ID Status Reason Start Date Expiration Date V isits Requested Visits Authorized [id number] Closed Auto-Generate d Referral 03/14/2022 04/13/2023 1 1 Reason Comments Medication Problem INFORMATION SOURCE (unrecogn ized section and content) FOR RECORDS PERTAINING TO PATIENTS WHO ARE OR HAVE BEEN ENROLLED IN A CHEMICAL DEPENDENCY/SUBSTANCEABUSE PROGRAM, SOME INFORMATION MAY BE OMITTED. This clinical summary was aggregated from multiple sources. Caution should be exercised in using it in the provision of clinical care. This summary normalizes information from multiple sources, and as a consequence, information in this document may materially change the coding, format and clinical context of patient data. In addition, data may be omitted in some cases. CLINICAL DECISIONS SHOULD BE BASED ON THE PRIMARY CLINICAL RECORDS. [facility]. provides no warranty or guarantee of the accuracy or completeness of information in this document.
[2023-04-14 00:34] VITALS: PULSE 77
[2023-04-14] MEDS: Ketorolac 60 MG/2 ML Vial IM (00:34)
== END 2023-04-14 02:12 | disposition home or self-care (01) ==
PROVIDERS: Emergency Provider Emergency Medicine; PCP Family Medicine; Visit Provider Emergency Medicine
DX: J10.1 Influenza due to other identified influenza virus with other respiratory manifestations (principal); Z87.891 Personal history of nicotine dependence; F41.9 Anxiety disorder, unspecified; I10 Essential (primary) hypertension; K21.9 Gastro-esophageal reflux disease without esophagitis; Z79.899 Other long term (current) drug therapy; Z90.710 Acquired absence of both cervix and uterus; Z90.49 Acquired absence of other specified parts of digestive tract
CPT/HCPCS: 71046; 87631; 94640; 96372; 99283

== ENCOUNTER 2025-02-27 12:24 | Emergency (ER) | payer BC, SELFPAY ==
[2025-02-27 12:25] VITALS: BP 145/105; PULSE 81; RESP 18; TEMP 36.6; O2SAT 95; BMI 37.3
--- NOTE | 2025-02-27 15:28 | EDS_ITS ---
HPI History of Present Illness Chief Complaint: Sore Throat [facility] Medical History Anemia Anxiety Bilateral upper abdominal pain Gastritis GERD (gastroesophageal reflux disease) HTN (hypertension) Hyperplastic rectal polyp Migraine Obesities, morbid Sleep disorder Home Medications Medication Instructions Recorded Last Taken Type citalopram 40 mg tablet 40 mg PO DAILY 04/21/13 Unkn own History clonazepam 1 mg tablet 1 mg PO DAILY 04/21/13 Unkno wn History fluticasone propionate 50 2 spray DAILY 04/21/13 Unkno wn History mcg/actuation nasal spray,suspension loratadine 10 mg tablet (Allergy 10 mg PO DAILY Unknown History Relief (loratadine)) dicyclomine 10 mg capsule 20 mg (2 x 10 mg) PO TIDAC # 20 caps 01/22/19 Unknown Rx ondansetron 4 mg disintegrating 4 mg PO Q8H PRN PRN Na usea #10 tabs 01/22/19 Unknown Rx tablet sucralfate 1 gram tablet (Carafate) 1 g PO BID #20 tab s 03/14/22 Unknown Rx albuterol sulfate 90 mcg/actuation 2 puff inhalation Q 6H PRN 07/03/22 Unknown History aerosol inhaler aluminum chloride 20 % topical 1 applic topical QWEEK PRN 07/03/22 Unknown History solution (Drysol) bisoprolol 5 1 tab PO DAILY 07/03/22 Unkn own History mg-hydrochlorothiazide 6.25 mg tablet (Ziac) docusate sodium 100 mg capsule 100 mg PO DAILY 3 Unknown History (Colace) estradiol 10 mg implant pellet mg subcut 07/03/22 Unkn own History pantoprazole 40 mg tablet,delayed 40 mg PO DAILY 07/03 Unknown History release oseltamivir 75 mg capsule (Tamiflu) 75 mg PO BID 5 day s #10 caps 04/14/23 Unknown Rx prednisone 20 mg tablet 40 mg (2 x 20 mg) PO DAILY 2 days 02/27/25 Unknown Rx #4 tabs Allergy/AdvReac Type Severity Reaction Status Date / Time Fish Containing Products Allergy Swelling Verified 02/27/25 12:25 shellfish derived Allergy Swelling Verified 02/27/25 12:25 olanzapine (From Zyprexa) AdvReac Unknown Verified 02/27/25 12:25 paroxetine HCl (From Paxil) AdvReac Unknown Verified 02/27/25 12:25 sertraline HCl (From Zoloft) AdvReac Unknown Verified 02/27/25 12:25 sumatriptan (From Imitrex) AdvReac Upset Verified 02/27/25 12:25 Stomach sumatriptan succinate (From AdvReac Upset Verified 02/27/25 12:25 Imitrex) Stomach Family History Mother Cancer Father Hypertension Prostate cancer DVT (deep venous thrombosis) Grandmother AD (Alzheimer's disease) Sister Fibroids Diabetes Surgical History H/O dilation and curettage H/O: hysterectomy Hx of cholecystectomy Social History Smoking Status: Former smoker alcohol intake: current EXAM Physical Exam Const Vital Signs: 02/27/25 12:25 Temperature 98 F Temperature Source Oral Pulse Rate 81 Respiratory Rate 18 Blood Pressure 145/105 H Blood Pressure Mean 118 Pulse Ox 95 Oxygen Delivery Method Room Air Discharge Plan Triage Chief Complaint: Sore Throat ED Provider: Yazan Holt Dx/Rx/DC Orders Clinical Impression: Pruritus of skin, Sensation of swollen throat, Myalgia Instructions: ED General Allergic Reactions Prescriptions: New prednisone 20 mg tablet 40 mg PO DAILY 2 Days Qty: 4 0RF No Action albuterol sulfate 90 mcg/actuation HFA aerosol inhaler 2 puff inhalation Q6H PRN Drysol 20 % solution 1 applic topical QWEEK PRN bisoprolol-hydrochlorothiazide [Ziac] 5-6.25 mg tablet 1 tab PO DAILY docusate sodium [Colace] 100 mg capsule 100 mg PO DAILY estradiol 10 mg pellet subcut pantoprazole 40 mg tablet,delayed release (DR/EC) 40 mg PO DAILY citalopram 40 MG tablet 40 mg PO DAILY Patient Comments: antidepressant clonazepam 1 MG tablet 1 mg PO DAILY Patient Comments: anxiety fluticasone propionate 1 SPRAY spray,suspension 2 spray NASAL DAILY Patient Comments: allergies loratadine [Allergy Relief (loratadine)] 10 MG tablet 10 mg PO DAILY Patient Comments: allergies dicyclomine 10 MG capsule 20 mg PO TIDAC Qty: 20 0RF ondansetron 4 MG tablet 4 mg PO Q8H PRN PRN (Reason: Nausea) Qty: 10 0RF sucralfate [Carafate] 1 gram tablet 1 g PO BID Qty: 20 0RF oseltamivir [Tamiflu] 75 mg capsule 75 mg PO BID 5 Days Qty: 10 0RF Stand Alone Forms: ED Work / School Excuse Primary Care Provider: Cisco Meier Referrals: Cisco Meier MD [Primary Care Provider, Medical] - 3-5 Days if not improving Print Language: Frisian Disposition Disposition: Home, Self Care
--- NOTE | 2025-02-27 15:28 | EX.ED.DYSGE1 ---
HPI History of Present Illness Chief Complaint: Sore Throat Informant: patient Narrative Narrative: Patient is a 54-year-old female with no significant PMHx presenting with throat discomfort and pruritus. - Reports throat discomfort beginning with a sensation of constriction/swelling-sensation, not painful. - Associated with pruritus, particularly in the hair, without hives. Now pruritis is all over entire body. - Denies dysphagia, fever, polydipsia, polyuria, wheezing, dyspnea, or cough. No syncope. - Throat symptoms improve slightly with coffee and tea consumption. - Denies body aches, back pain, or headaches. - No recent changes in diet or exposure to known allergens; works around many people and states she recently ate some pumpkin seeds and some peanut butter pie and wondering if she could be reacting to those although she has not in the past, it has been a long time since she has had any of that. - Denies known history of diabetes. Wondering "could this be due to diabetes" but denies polydipsia polyuria. [facility] Medical History Sleep disorder Migraine Anxiety Anemia Hyperplastic rectal polyp Gastritis Bilateral upper abdominal pain HTN (hypertension) GERD (gastroesophageal reflux disease) Obesities, morbid Home Medications Medication Instructions Recorded Last Taken Type citalopram 40 mg tablet 40 mg PO DAILY 04/21/13 Unknown History clonazepam 1 mg tablet 1 mg PO DAILY 04/21/13 Unknown History fluticasone propionate 50 2 spray DAILY 04/21/13 Unknown History mcg/actuation nasal spray,suspension loratadine 10 mg tablet (Allergy 10 mg PO DAILY 04/21/13 Unknown History Relief (loratadine)) dicyclomine 10 mg capsule 20 mg (2 x 10 mg) PO TIDAC #20 caps 01/22/19 Unknown Rx ondansetron 4 mg disintegrating 4 mg PO Q8H PRN PRN Nausea #10 tabs 01/22/19 Unknown Rx tablet sucralfate 1 gram tablet (Carafate) 1 g PO BID #20 tabs 03/14/22 Unknown Rx albuterol sulfate 90 mcg/actuation 2 puff inhalation Q6H PRN 07/03/22 Unknown History aerosol inhaler aluminum chloride 20 % topical 1 applic topical QWEEK PRN 07/03/22 Unknown History solution (Drysol) bisoprolol 5 1 tab PO DAILY 07/03/22 Unknown History mg-hydrochlorothiazide 6.25 mg tablet (Ziac) docusate sodium 100 mg capsule 100 mg PO DAILY 07/03/22 Unknown History (Colace) estradiol 10 mg implant pellet mg subcut 07/03/22 Unknown History pantoprazole 40 mg tablet,delayed 40 mg PO DAILY 07/03/22 Unknown History release oseltamivir 75 mg capsule (Tamiflu) 75 mg PO BID 5 days #10 caps 04/14/23 Unknown Rx prednisone 20 mg tablet 40 mg (2 x 20 mg) PO DAILY 2 days 02/27/25 Unknown Rx #4 tabs Allergy/AdvReac Type Severity Reaction Status Date / Time Fish Containing Products Allergy Swelling Verified 02/27/25 12:25 shellfish derived Allergy Swelling Verified 02/27/25 12:25 olanzapine (From Zyprexa) AdvReac Unknown Verified 02/27/25 12:25 paroxetine HCl (From Paxil) AdvReac Unknown Verified 02/27/25 12:25 sertraline HCl (From Zoloft) AdvReac Unknown Verified 02/27/25 12:25 sumatriptan (From Imitrex) AdvReac Upset Verified 02/27/25 12:25 Stomach sumatriptan succinate (From AdvReac Upset Verified 02/27/25 12:25 Imitrex) Stomach Family History Mother Cancer Father Hypertension Prostate cancer DVT (deep venous thrombosis) Grandmother AD (Alzheimer's disease) Sister Fibroids Diabetes Surgical History H/O dilation and curettage H/O: hysterectomy Hx of cholecystectomy Social History Smoking Status: Former smoker alcohol intake: current ROS ROS ED Constitutional Constitutional ED: Denies chills or fever(s) Eyes Eyes: Denies change in vision or diplopia ENT ENT ED: Reports as per HPI and throat swelling; Denies neck pain, rhinorrhea or sore throat Cardiovascular Cardiovascular: Denies chest pain, palpitations or syncope Respiratory/Chest Respiratory/Chest: Denies cough or dyspnea Gastrointestinal Gastrointestinal: Denies abdominal pain, diarrhea, nausea or vomiting Genitourinary Genitourinary ED: Denies dysuria or hematuria Musculoskeletal Musculoskeletal: Denies back pain or neck pain Integumentary Reports pruritus; Denies abscess or rash Neurologic Neurologic: Denies headache(s), paresthesias or weakness Psychiatric Psychiatric: Denies anxiety or suicidal thoughts Endocrine Endocrinology: Denies polydipsia or polyuria EXAM Physical Exam Const Vital Signs: 02/27/25 12:25 Temperature 98 F Temperature Source Oral Pulse Rate 81 Respiratory Rate 18 Blood Pressure 145/105 H Blood Pressure Mean 118 Pulse Ox 95 Oxygen Delivery Method Room Air Positive well nourished, well developed and obese General Appearance ED: well developed and NAD Nutritional Appearance: obese HEENT Reports moist mucous membranes HEENT Narrative: Speaking in full sentences without difficulty. Posterior oropharynx is clear and normal-appearing with no evidence of edema or stridor or trismus. normocephalic and atraumatic Eyes PERRL and EOMs intact bilaterally Neck full ROM and supple Resp normal respiratory effort and clear to auscultation bilaterally Cardio regular rate, regular rhythm and no murmurs GI non-tender and non-distended Auscultation: normoactive bowel sounds Palpation: soft Back/Spine no CVA tenderness General Back: other FROM Extremity normal to inspection General Extremety ED: Negative for edema, pulses abnormal or tenderness General Extremity: Negative for edema or pulses abnormal Neuro oriented x3, CN's II-XII intact bilaterally and no sensory deficits noted Sensorium / Orientation: awake and alert Motor Exam: strength 5/5 throughout Psych Mood & Affect: anxious Skin no rashes or lesions noted, no wounds and skin turgor normal MDM MDM MDM Narrative Medical decision making narrative: Assessment: The patient is a 54-year-old female presenting for three days of generalized itching and intermittent throat swelling with chronic baseline myalgias. Examination shows clear lungs, no wheezing, normal oropharynx, and no jaundice; vital signs notable only for mildly elevated blood pressure. She remains able to swallow and is far from anaphylaxis. Given the temporal association with new foods and lack of infectious symptoms or jaundice, an allergic reaction is most likely. Fatty liver and diabetes are considered less likely related as she is not jaundiced and lacks polyuria or polydipsia. Plan: - Administered first dose oral prednisone in ED. - Prescribed prednisone to complete a 3-day course (2 additional days). - Provided counseling to avoid suspected triggers until symptoms resolve and to resume individual food trials later for identification. - Discharged home with instructions to follow up with primary care physician and return for any progression to respiratory distress or inability to swallow. Diagnostics: - Random capillary blood glucose ordered after patient was amenable, but when nursing went to perform she refused. Portions of this note were generated using voice recognition software ([employer]). I have reviewed the contents and every effort has been made to ensure accuracy; however, inadvertent errors in grammar, spelling, punctuation, or word choice may occur, that were not noted before signing the document and should not alter the intended clinical meaning. Discharge Plan Triage Chief Complaint: Sore Throat ED Provider: Yazan Holt Dx/Rx/DC Orders Clinical Impression: Pruritus of skin, Sensation of swollen throat, Myalgia, Anxiety Instructions: ED General Allergic Reactions Prescriptions: New prednisone 20 mg tablet 40 mg PO DAILY 2 Days Qty: 4 0RF No Action albuterol sulfate 90 mcg/actuation HFA aerosol inhaler 2 puff inhalation Q6H PRN Drysol 20 % solution 1 applic topical QWEEK PRN bisoprolol-hydrochlorothiazide [Ziac] 5-6.25 mg tablet 1 tab PO DAILY docusate sodium [Colace] 100 mg capsule 100 mg PO DAILY estradiol 10 mg pellet subcut pantoprazole 40 mg tablet,delayed release (DR/EC) 40 mg PO DAILY citalopram 40 MG tablet 40 mg PO DAILY Patient Comments: antidepressant clonazepam 1 MG tablet 1 mg PO DAILY Patient Comments: anxiety fluticasone propionate 1 SPRAY spray,suspension 2 spray NASAL DAILY Patient Comments: allergies loratadine [Allergy Relief (loratadine)] 10 MG tablet 10 mg PO DAILY Patient Comments: allergies dicyclomine 10 MG capsule 20 mg PO TIDAC Qty: 20 0RF ondansetron 4 MG tablet 4 mg PO Q8H PRN PRN (Reason: Nausea) Qty: 10 0RF sucralfate [Carafate] 1 gram tablet 1 g PO BID Qty: 20 0RF oseltamivir [Tamiflu] 75 mg capsule 75 mg PO BID 5 Days Qty: 10 0RF Stand Alone Forms: ED Work / School Excuse Primary Care Provider: Cisco Meier Referrals: Cisco Meier MD [Primary Care Provider, Medical] - 3-5 Days if not improving Print Language: Guamanian Disposition Disposition: Home, Self Care Discharge Date/Time: 02/27/25 15:45
--- NOTE | 2025-02-27 15:48 | ED.RN ---
pt stated she was not happy with her care being in the hallway bed. RN explained that department is extremely busy and this was best way to get pt seen by a doctor faster. RN to check BS per pt request but then refused stating she did not need it done and wanted to go home. RN to recheck vitals, pt took BP cuff off and stated that it was way too tight. RN explained that BP was high initially and needed to be rechecked. PT agreed, would not stop moving arm. Obtained inaccurate reading due to pt movement. Declined a recheck at this time.
== END 2025-02-27 15:45 | disposition home or self-care (01) ==
PROVIDERS: Emergency Provider Emergency Medicine; PCP Family Medicine; Visit Provider Emergency Medicine
DX: L29.89 Other pruritus (principal); R09.82 Postnasal drip; M79.10 Myalgia, unspecified site; F41.9 Anxiety disorder, unspecified; Z87.891 Personal history of nicotine dependence
CPT/HCPCS: 99282